=== PATIENT | male | born 1975 | race African-American/Black ===

== ENCOUNTER → 2016-07-08 | Outpatient (CLI) | payer MEDICARE ==
[~2016-07-08] MED LIST: BACTRIM DS TAB1 EACH PO; BACTRIM DS TABL1 TA1 PO; BC POWDER PACK1 EACH PO; BUMEX2 MG PO; CALCITRATE + V1 EACH PO; CLEOCIN150 MG PO; COREG3.125 MG PO; CYCLOBENZAPRINE5 MG PO; DAPTOMYCIN IV; DESYREL150 M1 PO; FENOFIBRATE145 M1 PO; HUMALOG100 U/ML SUBQ; HYDRALAZINE HCL50 MG PO; IRON325 ( 651 PO; LANTUS100 UNITS/ SUBQ; LEVEMIR FL100 UNIT/1 SUBQ; LISINOPRIL10 MG PO; LOSARTAN-HCTZ1 EAC1 PO; LOSARTAN-HCTZ1 EACH PO; METOPROLOL TAR100 MG PO; NEURONTIN600 MG PO; NORCO1 TAB 10/3 PO; NORVASC PO; NORVASC10 MG PO; NOVOLOG100 UNIT/1 SUBQ; OMEPRAZOLE20 M2 PO; PERCOCET 5/321 UDTAB PO; SODIUM BICARBO650 MG PO; TASPRIN325 MG PO; VICODIN PO; ZYLOPRIM100 MG PO
--- NOTE | ~2016-07-08 | MR61 ---
[facility] A Service of [facility] & [facility] / [facility] RADIOLOGY TEXT RESULTS PATIENT: KEN IBARRA LOCATION: CMRI : 77 UNIT #: [id number] AGE: [address]: Rehana Coker MD SEX: M ORDER DR: [id number] [address] [place], [place] [address] [id number] MR#: [id number] Acc #: [id number] NAME: KEN IBARRA : 1975 SEX: M STUDY DATE/TIME: 07/08/2016 20:28 UNIT: [facility] ROOM: STUDY DESCRIPTION: MR Foot Wo Contrast Rt Attending Physician: Sasha Coker M.D. Referring Physician: Sasha Coker M.D. Ordering Physician: Sasha Coker M.D. Primary Care Physician: Carissa Brown M.D. MRI CENTER REPORT This report is preliminary unless electronic signature is present. EXAM MRI right ankle and foot without contrast 07/08/2016. HISTORY Order states osteomyelitis of right fifth metatarsal. History sheet states right lateral distal foot pain with open wound for 3 months. Increasing pain for 3 weeks. No known injury. Right foot amputation 1.5 to 2 years ago. Diabetic. COMPARISON MRI right foot without and with IV contrast 08/30/2013, right foot radiographs 07/07/2016. The patient reported had a GFR 34 on 04/26/2015. No IV contrast was administered. Patient is status post transmetatarsal amputation since the previous MRI of 08/30/2013. There is apparent skin thickening surrounding a wound of the lateral midfoot adjacent to the fifth metatarsal base. The wound appears to measured 2.3 cm AP x 2.9 cm craniocaudal. Deep to the wound, there is loss of cortical definition of the lateral fifth metatarsal base with underlying marrow edema and subtle peripheral T1 marrow replacement compatible with early osteomyelitis. There is no evidence of a fluid collection/abscess. There is no additional evidence of osteomyelitis. There is generalized subcutaneous inflammation/edema. Correlate for clinical cellulitis. [facility] A Service of [facility] & [facility] / [facility] RADIOLOGY TEXT RESULTS PATIENT: KEN IBARRA [id number] : [birth year] UNIT #: [id number] AGE: [address]: Rehana Coker MD SEX: M ORDER DR: Ankle and hind foot are unremarkable and the is subcutaneous edema. There is generalized muscle atrophy. IMPRESSION 1. Lateral midfoot wound adjacent to fifth metatarsal base and stump of the transmetatarsal amputation. There is underlying change of early osteomyelitis of the fifth metatarsal base. 2. Muscle atrophy and subcutaneous edema. 3. Transmetatarsal amputation. 4. No abscess or evidence of septic arthritis. Dictated by... Sara Hernandez M.D. THIS IS AN ELECTRONICALLY VERIFIED REPORT Sara Hernandez M.D. at 07/10/2016 8:11 AM HAYDEN/monica TD: 07/09/2016 12:04 JOB #: [id number] MRI CENTER REPORT Page 1 of 1 COPY
== END | disposition home or self-care (01) ==
LOC: CMRI 19:42
DX: M86.8X7 Other osteomyelitis, ankle and foot (principal); T87.89 Other complications of amputation stump; M62.571 Muscle wasting and atrophy, not elsewhere classified, right ankle and foot; Z89.431 Acquired absence of right foot
CPT/HCPCS: 73718

== ENCOUNTER 2016-07-16 10:01 | Inpatient (IN) | payer MEDICARE, OTHER ==
--- NOTE | ~2016-07-16 | EKG ---
PATIENT: KEN IBARRA UNIT #: [id number] Ventricular Rate: 74 BPM Atrial Rate: 74 BPM P-R Interval: 172 ms QRS Duration: 86 ms Q-T Interval: 416 ms QTC Calculation(Bezet): 461 ms P [place]: 59 degrees Calculated R [place]: 76 degrees Calculated T [place]: 91 degrees Diagnosis Line: Normal sinus rhythm Diagnosis Line: Nonspecific T wave abnormality Diagnosis Line: Prolonged QT Diagnosis Line: Abnormal ECG Diagnosis Line: When compared with ECG of 17-JUL-2016 09:34, Diagnosis Line: No significant change was found Diagnosis Line: Confirmed by VANESSA SCHWAB MD ([id number]) on Diagnosis Line: 07/21/2016 9:36:23 PM INTERPRETING MD: ZAHEER CALVILLO
--- NOTE | ~2016-07-16 | CO ---
Unit #: [id number] #: [id number] Patient: KEN IBARRA [id number] [address] [address] [id number] I MR#: [id number] NAME: KEN IBARRA. ROOM: [facility] Age: 40 Sex: M Admission Date: 07/16/2016 : 1975 Attending Physician: Srinath Mantilla M.D. Primary Care Physician: Carissa Brown M.D. Consultation Date: 07/16/2016 CONSULTATION REPORT REASON FOR CONSULTATION Preoperative evaluation. HISTORY OF PRESENT ILLNESS The patient is a 40-year-old male with a past medical history of diabetes with peripheral neuropathy, hypertension, hyperlipidemia, diastolic dysfunction, chronic kidney disease who is being seen in the pre-surgical area for the above. The patient states that he has had a wound on his right foot for about three months. He states that it has not been healing. It started draining malodorous fluid about a month ago. He started seeing Dr. Coker. He has been on Bactrim for over a week. He has apparently not had any improvement. He is scheduled for debridement and right fifth metatarsal excision as well as application of wound vac today. Regarding the patient's chronic medical conditions, he has chronic kidney disease and sees Dr. Monique. Regarding diabetes, he states that he has been taking his medications as prescribed and his blood sugars are typically in the 100s. He does have diastolic dysfunction. He states that he was hospitalized at [facility] in January of 2016 for chest pain. He underwent a stress test. There are no records. PAST MEDICAL HISTORY 1. Admission to [facility] for chest pain in January 2016 (no records). 2. Admission to [facility] May 01, 2015, for left second toe deformity and infection. 3. Diabetes with peripheral neuropathy. 4. Hypertension. 5. Hyperlipidemia. 6. Diastolic dysfunction. The patient had an echocardiogram September 02, 2013, that showed moderate concentric left ventricular hypertrophy with an ejection fraction of 50% to 55%. The Doppler flow pattern was suggestive of impaired left ventricular relaxation. PAST SURGICAL HISTORY 1. Right foot surgery. 2. Osteotomies. 3. Resection of metatarsal head in the past. SOCIAL HISTORY The patient lives with his . He smokes a few Black and Milds daily. He denies alcohol or illicit drug use. He is currently unemployed. Unit #: [id number] #: [id number] Patient: EKN IBARRA FAMILY HISTORY Notable for diabetes. ALLERGIES Cefazolin. HOME MEDICATIONS 1. Metoprolol 150 mg twice daily. 2. Omeprazole 20 mg daily. 3. Norvasc 10 mg daily. 4. Zyloprim 100 mg daily. 5. Bumex 2 mg twice daily. 6. Fenofibrate 145 mg daily. 7. Aspirin 325 mg daily. 8. Cyclobenzaprine 5 mg t.i.d. 9. Hydralazine 5 mg t.i.d. 10. Levemir 10 units twice daily. 11. NovoLog 45 units t.i.d. before meals. 12. Losartan/hydrochlorothiazide 100/25 twice daily. 13. Sodium bicarb 650 mg twice daily. 14. Bactrim DS twice daily. 15. Caltrate plus D Thursday, Thursday, Thursday. REVIEW OF SYSTEMS A complete review of systems is negative except as indicated in the HPI. DIAGNOSTIC STUDIES CARDIOVASCULAR: There is an EKG from July 14 that showed normal sinus rhythm. T wave inversion is noted in V6. There is no old EKG for comparison. IMAGING: MRI of the right foot from July 09 showed lateral mid foot wound adjacent to the fifth metatarsal base and stump of the amputation with underlying change of early osteomyelitis of the fifth metatarsal base. There is no abscess or evidence of septic arthritis. LABORATORY: Complete blood count from today notable for white blood cell count of 13.9, hemoglobin and hematocrit 8.8 and 27.2 respectively, platelets are 588. Basic metabolic panel notable for sodium of 129, chloride is 93, glucose 72, BUN and creatinine 78 and 7.5 respectively, calcium is 8.1. PHYSICAL EXAMINATION VITAL SIGNS: Temperature is 97.4, pulse 87, blood pressure 124/85, respirations 18, oxygen saturation 96% on room air. GENERAL: The patient is an -[place] male who is awake and alert, in no acute distress. HEENT: The head is atraumatic. Mucous membranes are moist. NECK: Supple. Trachea is midline. CARDIOVASCULAR: Regular rate and rhythm. LUNGS: Clear to auscultation bilaterally with no increased work of breathing. ABDOMEN: Soft, nontender with bowel sounds present in all four quadrants. EXTREMITIES: The right foot is in a bandage that is clean, dry and intact. There is 1+ edema of the right lower extremity. There is no edema of the left lower extremity. Unit #: [id number] #: [id number] Patient: KEN IBARRA NEURO: The patient is awake and alert. He follows commands. PSYCH: Mood and affect are normal. The patient is cooperative. SKIN: Skin of examined areas is warm and dry. ASSESSMENT The patient is a 40-year-old male with: 1. Right foot wound. 2. Osteomyelitis of the right fifth metatarsal: The patient is scheduled for surgery with wound vac today. 3. Acute on chronic kidney disease: I spoke with Dr. Shaun Monique regarding this patient. His creatinine was3.1 when he was seen earlier this year. Creatinine is 7.5 today. The patient has been on Bactrim which could be contributing. Additionally, he is on Bumex as well as losartan/hydrochlorothiazide which could also be contributing. He would benefit from hydration prior to surgery. 4. Acute on chronic anemia: The patient's hemoglobin was 11.7 on April 26, 2015. It is 8.4 today. 5. Diastolic dysfunction with ejection fraction as noted above. 6. Abnormal electrocardiogram: The patient had a stress test in January of 2016 at [facility]. There are no records at the time of this dictation. 7. Diabetes: The patient's hemoglobin A1c was 7.1 on July 14. 8. Tobacco abuse. PLAN 1. Regarding the surgery scheduled for this afternoon, I am attempting to reach Dr. Mantilla regarding possibly postponing the surgery unless it is emergent. The patient needs cardiac clearance from cardiology. I have requested records from [facility]. I have also discussed this patient with Dr. Monique and we think that he would benefit from hydration prior to surgical procedure. 2. Regarding acute on chronic kidney disease, I have ordered normal saline at 125 mL/hour as well as urine sodium, creatinine and eosinophils. I have also ordered a urinalysis and strict I's and O's. Will DC nephrotoxic medications. 3. Regarding diabetes, I have ordered low dose sliding scale insulin with Accu-Cheks. Thank you very much for the consultation. We will follow the patient along closely with you. Dictated by... Rob Bustamante/zorna TD: 07/16/2016 12:59 JOB #: [id number] Unit #: [id number] #: [id number] Patient: KEN IBARRA CONSULTATION REPORT Page 1 of 1 X Tonia Jensen MD CONSULTATION REPORT
--- NOTE | ~2016-07-16 | OR ---
Unit #: [id number] #: [id number] Patient: KEN IBARRA [id number] [address] [place], [place] [address] [id number] I MR#: [id number] NAME: KEN IBARRA. ROOM: [facility] Date of Procedure: 07/18/2016 Admission Date: 07/16/2016 Surgeon: Srinath Mantilla M.D. : 1975 Attending Physician: Srinath Mantilla M.D. Primary Care Physician: Carissa Brown M.D. OPERATIVE REPORT PREOPERATIVE DIAGNOSES 1. Status post prior right foot transmetatarsal amputation. 2. Right foot decubitus ulcer at the base of the fifth metatarsal with underlying osteomyelitis. POSTOPERATIVE DIAGNOSES 1. Osteomyelitis of the residual fifth metatarsal. 2. Osteomyelitis of right cuboid. 3. Septic arthritis of right calcaneocuboid joint. PROCEDURES PERFORMED 1. Excision of the fifth metatarsal. 2. Bone biopsy of the cuboid for culture and pathology. 3. Arthrotomy of calcaneocuboid joint. 4. Application of wound VAC area of approximately 5 cm in diameter. ANESTHESIA General. ESTIMATED BLOOD LOSS Minimal. COMPLICATIONS None apparent. INDICATIONS FOR PROCEDURE Linda is a 40-year-old gentleman, who is well known to me for multiple prior amputations including a right transmetatarsal amputation. He has most recently seen Dr. Coker and he was found to have an ulcerated area over the base of the fifth metatarsal. There was a foul smell and underlying findings consistent with osteomyelitis. Operative intervention was recommended with excision of the remaining fifth metatarsal and application of wound VAC. The patient elected to proceed. DESCRIPTION OF PROCEDURE The patient was identified in preoperative holding area. The operative site was marked. The patient was brought to the operating room and placed supine on the operating table. A general anesthetic was induced. A tourniquet was applied to the right thigh. The right leg was prepped and draped in sterile fashion. The leg was exsanguinated with gravity exsanguination. The tourniquet was inflated. The area of ulceration was excised in elliptical fashion. The underlying fifth metatarsal was Unit #: [id number] #: [id number] Patient: KEN IBARRA immediately identified. All nonviable necrotic tissue was excised by sharp excisional debridement with a 15-blade knife. The fifth metatarsal was necrotic and appeared visibly contaminated with osteomyelitis. The bone was dusky in appearance and soft. This was excised. The cuboid was visualized and was noted to be soft and pathologic appearing as well. A rongeur was used to take several samples of the cuboid. The cuboid was extremely soft and again consistent with likely osteomyelitis. Dissection was carried back to the calcaneocuboid joint, and a small amount of cloudy fluid have been observed from the proximal extent of the wound. A formal arthrotomy was made at the calcaneocuboid joint. There was cloudy fluid expressed from the calcaneocuboid joint consistent with likely septic arthritis of this joint. The wound was then copiously irrigated with sterile saline with bacitracin. Any remaining nonviable tissue was again debrided and the wound irrigated. The proximal extension of the wound after the calcaneocuboid joint was closed with 3-0 nylon in a horizontal mattress fashion. The area of elliptical incision of the prior ulcer was treated with a wound VAC. A small amount of Adaptic was placed in the depth of the wound to cover the exposed cuboid and fourth metatarsal. A silver impregnated sponge was then placed into the wound. A small strip of wound VAC sponge material was placed over the incision both proximal and distal to the ellipse, and a good seal was achieved with an Ioban dressing. The wound VAC was placed 125 mm of continuous suction. DISPOSITION Stable to the recovery room. Dictated by... Rob Burt/jean marie TD: 07/18/2016 10:44 JOB #: [id number] OPERATIVE REPORT Page 1 of 1 X Srinath Mantilla MD PROCEDURE OPERATIVE NOTE
--- NOTE | ~2016-07-16 | EKG ---
PATIENT: KEN IBARRA UNIT #: [id number] Ventricular Rate: 82 BPM Atrial Rate: 82 BPM P-R Interval: 172 ms QRS Duration: 86 ms Q-T Interval: 390 ms QTC Calculation(Bezet): 455 ms P [place]: 67 degrees Calculated R [place]: 82 degrees Calculated T [place]: 100 degrees Diagnosis Line: Normal sinus rhythm Diagnosis Line: T wave abnormality, consider lateral ischemia Diagnosis Line: Abnormal ECG Diagnosis Line: When compared with ECG of 16-JUL-2016 13:50, Diagnosis Line: (unconfirmed) Diagnosis Line: No significant change was found Diagnosis Line: Confirmed by FERMÍN BELL MD ([id number]) on 07/17/2016 Diagnosis Line: 6:09:12 PM INTERPRETING MD: RAY CALVILLO
--- NOTE | ~2016-07-16 | CO ---
Unit #: [id number] #: [id number] Patient: KEN GROVE [id number] [facility] [address]. [place], [place] [address] [id number] I MR#: [id number] NAME: KEN GROVE. ROOM: 473 Age: 40 Sex: M Admission Date: 07/16/2016 : 1975 Attending Physician: Srinath Mantilla M.D. Primary Care Physician: Carissa Brown M.D. 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 Sebastian Torres. CHIEF COMPLAINT We were asked to see for cardiac clearance with the patient with abnormal EKG. HISTORY OF PRESENT ILLNESS Mr. Grove is a 40-year-old male, who was admitted to [facility] for right fifth metatarsal base excision, debridement, and wound VAC application for worsening necrotic ulceration over the lateral fifth metatarsal base. He has a history of a previous right foot transmetatarsal amputation. He has poorly controlled diabetes and diabetic neuropathy. He was recently at [facility] in 01/2016, where he was seen by Cardiology for an elevated troponin. At that time, his troponin was 0.35 and donnie to 0.61. It was in the setting of acute on chronic kidney disease. In review of the [facility] records, states the patient had a stress test performed on 2014 that showed no evidence of ischemia and an echo as well that showed a mildly increased left ventricular outflow tract gradient, but normal left ventricular function and no significant valvular abnormality. He underwent a Lexiscan stress test on 02/03/2016, which showed probably normal Lexiscan stress Cardiolite test. There was no definitive evidence of myocardial ischemia or infarction. There was a small fixed defect with intact wall motion suggesting apical thinning and soft-tissue attenuations. Gated studies were poor quality, but overall there was normal left ventricular systolic function at 53%. A 12-lead EKG on 02/02/2016 showed a normal sinus rhythm with nonspecific ST-T wave abnormalities. PAST MEDICAL HISTORY 1. Insulin-dependent diabetes mellitus, last known A1c was 9.3 complicated by diabetic retinopathy and neuropathy. 2. Diabetic polyneuropathy with bilateral footdrop. 3. History of hypertension. 4. Chronic kidney disease stage 3. PAST SURGICAL HISTORY 1. On 05/01/2015, left second toe partial amputation through proximal interphalangeal joint for left second claw toe and left toe distal phalangeal osteomyelitis. 2. History of a right foot transmetatarsal amputation, left foot transmetatarsal head and hallux excision as well as amputation of the Unit #: [id number] #: [id number] Patient: KEN GROVE L distal phalanges of the left second through fourth toes. SOCIAL HISTORY Tobacco abuse. The patient is disabled. HOME MEDICATIONS Metoprolol 150 mg b.i.d., omeprazole 20 mg daily, Norvasc 10 mg daily, Zyloprim 100 mg daily, Bumex 2 mg b.i.d., fenofibrate 145 mg daily, aspirin 325 mg daily, cyclobenzaprine 5 mg t.i.d., hydralazine 50 mg t.i.d., Levemir 10 units subcu b.i.d., NovoLog 4 to 5 units subcu t.i.d. before meals, losartan/hydrochlorothiazide 100/25 b.i.d., sodium bicarb 650 mg b.i.d., Bactrim DS one tablet b.i.d., calcium citrate with vitamin D Thursday, Thursday, and Thursday. ALLERGIES Cefazolin caused a rash with itching that was severe. REVIEW OF SYSTEMS No fevers, no chills. Positive for nausea and increasing blood sugars. He has had some fevers with the infection in his foot. No dyspnea on exertion. No orthopnea. No nighttime snoring. No daytime somnolence. He does get some sharp shooting pains across his chest at times. No Crohn's. No colitis. He does sometimes walk with a walker. He has neuropathy as well as amputations on both feet. PHYSICAL EXAMINATION GENERAL: Chronically debilitated male, in no acute distress. VITAL SIGNS: Currently, no vital signs are available. The patient has 12-lead EKG, which shows a normal sinus rhythm. Ventricular rate 96, respirations are 16 in the room. He is 5 feet 7-1/2 inches, weight 72.7 kg, BMI 24. HEENT: Normocephalic and atraumatic. No xanthelasma. Pupils equal, round, reactive to light. Extraocular movements intact. No jugular venous distention. No elevated CVP. LUNGS: Clear to auscultation anteriorly, posteriorly bilaterally. HEART: S1, S2. No S3, S4. No murmurs, rubs, or gallops. No lift. ABDOMEN: Soft, nontender, nondistended. EXTREMITIES: No edema of the lower extremities. Right foot has a dressing on it. DIAGNOSTIC STUDIES LABORATORY RESULTS: Hemoglobin 8.8, hematocrit 27.2, white blood cell count 13.9, platelet count 588. The patient had preop labs done on 07/14/2016. White blood cell count was 5.3, hemoglobin 8.4, hematocrit 25.9, with a platelet count of 527. He had a PT of 12 and an INR of 1.1. His chemistry also on 07/14/2016 showed a sodium of 128, potassium of 4.9, chloride 93, CO2 26, BUN 63, creatinine 6.2, glucose was 125. AST 31, ALT 17. C-reactive protein was 15.7, and his hemoglobin A1c was 7.1. Repeat chemistry here at [facility] [place] shows a sodium of 129, potassium of 5.0, chloride 93, CO2 23, BUN 78, creatinine 7.5, glucose 72. CARDIOVASCULAR STUDIES: A 12-lead EKG shows a normal sinus rhythm, ventricular rate 77, atrial rate 77, possible left atrial enlargement, T-wave abnormality, consider lateral ischemia. Prolonged QT. ASSESSMENT AND PLAN 1. Osteomyelitis. The patient is scheduled to have surgery today. Unit #: [id number] #: [id number] Patient: KEN GROVE 2. History of hypertension. 3. Insulin-dependent diabetes. 4. Neuropathy. 5. Continued tobacco abuse. 6. The patient has had 2 negative stress test, one in 2014 and repeat in 01/2016. He is without any maday chest discomfort. A 12-lead EKG shows nonspecific T-wave abnormality. No ST elevation. No ST depression. He has T-wave inversion in I, aVL, and V6. We will check a 2D echocardiogram. The patient was discussed with Dr. Torres via phone and has been cleared for surgery. We will check a 2D echocardiogram. Dictated by... Sariah Maldonado A.P.R.N. [facility]/jean marie TD: 07/17/2016 02:55 JOB #: [id number] CONSULTATION REPORT Page 1 of 1 X X CONSULTATION REPORT
--- NOTE | ~2016-07-16 | EKG ---
PATIENT: KEN IBARRA UNIT #: [id number] Ventricular Rate: 96 BPM Atrial Rate: 96 BPM P-R Interval: 170 ms QRS Duration: 88 ms Q-T Interval: 372 ms QTC Calculation(Bezet): 469 ms P [place]: 55 degrees Calculated R [place]: 57 degrees Calculated T [place]: 121 degrees Diagnosis Line: Normal sinus rhythm Diagnosis Line: T wave abnormality, consider lateral ischemia Diagnosis Line: Prolonged QT Diagnosis Line: Abnormal ECG Diagnosis Line: When compared with ECG of 14-JUL-2016 14:05, Diagnosis Line: No significant change was found Diagnosis Line: Confirmed by FERMÍN BELL MD ([id number]) on 07/17/2016 Diagnosis Line: 6:01:31 PM INTERPRETING MD: RAY CALVILLO
--- NOTE | ~2016-07-16 | HP ---
Unit #: [id number] #: [id number] Patient: KEN IBARRA [id number] [address] [address] [id number] MR#: [id number] NAME: KEN IBARRA. ROOM: Age: Sex: M Admission Date: 07/16/2016 : 1975 Attending Physician: Srinath Mantilla M.D. Primary Care Physician: Carissa Brown M.D. HISTORY AND PHYSICAL CHIEF COMPLAINT Right foot lateral wound. HISTORY OF PRESENT ILLNESS The patient is a 40-year-old male with poorly controlled diabetes and diabetic neuropathy who has undergone previous right foot transmetatarsal amputation, who now presents with a worsening necrotic ulceration over the lateral fifth metatarsal base. MRI documents osteomyelitis of the residual fifth metatarsal base with nail replacement. He is admitted for right fifth metatarsal base excision and wound vac application. PAST MEDICAL HISTORY Remarkable for: 1. Insulin dependent diabetes. 2. Diabetic neuropathy. 3. Bilateral foot drop. 4. Hypertension. 5. Tobacco abuse. HOME MEDICATIONS 1. Gabapentin. 2. Hydrocodone. 3. Amlodipine. 4. Aspirin. 5. Hydralazine. 6. Insulin. 7. Metoprolol. ALLERGIES Cephalosporins. PAST SURGICAL HISTORY Right foot transmetatarsal amputation, left foot transmetatarsal head and hallux excision as well as amputation of the distal phalanges of the left second through fourth toes. SOCIAL HISTORY The patient is a smoker. He currently is not working. REVIEW OF SYSTEMS Unremarkable for fevers or chills although he does report nausea and increase in his blood sugar recently. PHYSICAL EXAMINATION Unit #: [id number] #: [id number] Patient: KEN IBARRA GENERAL: This is a thin, cachectic male in no acute distress. PHARYNX: Clear. NECK: Supple without masses. HEART: Regular sinus rhythm without murmurs or gallops. LUNGS: Clear. ABDOMEN: Soft and nontender. Examination of the right foot demonstrates a 3 cm diameter necrotic ulceration over the fifth metatarsal base. He has numbness in the stocking distribution. There is no ascending lymphangitis, fluctuance or drainage at this time. ADMITTING DIAGNOSES Right fifth metatarsal base osteomyelitis. PLAN The patient is admitted for right fifth metatarsal base excision, wound debridement and application of a wound vac. His peroneus longus is intact and will remain intact after this excision. I think the risk of hindfoot inversion following the procedure is low. Risks of the procedure were discussed. The patient agrees to proceed with the surgical plan. He is aware that the ultimate risk is below the knee amputation. Planned surgeon for this procedure is Dr. Srinath Mantilla. Dictated by Sasha Coker M.D. JUDE/zoran TD: 07/16/2016 09:41 JOB #: [id number] HISTORY AND PHYSICAL Page 1 of 1 X Rehana Coker MD X HISTORY AND PHYSICAL
--- NOTE | ~2016-07-16 | CO ---
Unit #: [id number] #: [id number] Patient: KEN IBARRA [id number] [address] [place], [place] [address] [id number] MR#: [id number] NAME: KEN IBARRA ROOM: 473 Age: 40 Sex: M Admission Date: 07/16/2016 : 1975 Attending Physician: Srinath Mantilla M.D. Primary Care Physician: Carissa Brown M.D. Consultation Date: 07/23/2016 CONSULTATION REPORT REASON FOR CONSULTATION Urinary retention. HISTORY OF PRESENT ILLNESS This 40-year-old man developed moderate difficulty urinating today and decreased urine output. In context of his renal insufficiency and other factors, a Valdes catheter was requested and residual was 750 mL. The patient with very detailed questioning essentially denies pre-hospital voiding symptoms. He typically sleeps through the night. Has no hesitancy, frequency, urgency, or previous trouble emptying. He has not been able to sit or stand to void, but has been rolling over in bed, but has also been doing so for 5 days since his surgery. He does have diabetes. He is receiving narcotics for pain control acutely and also chronically for his back pain. He has no prior history of urinary infection, gross hematuria, or stone disease. There is no family history of prostatism or prostate cancer and he has no history of prostatitis. PAST MEDICAL HISTORY Diabetes, hypertension, back pain, chronic renal insufficiency, hyperlipidemia, diastolic dysfunction, peripheral neuropathy. PAST SURGICAL HISTORY Osteotomies, right transmetatarsal amputation, bilateral toe amputations. MEDICATIONS Currently include Levaquin, Zyvox, Flagyl, sodium bicarbonate, Lovenox, Zofran, [place], morphine, [place], Lopressor, Protonix, NovoLog, hydralazine, Rocaltrol, Zyloprim, amlodipine, Protonix. ALLERGIES Cephalosporins. FAMILY HISTORY Negative for prostate cancer. SOCIAL HISTORY Positive for smoking. REVIEW OF SYSTEMS In addition to the above, he has had trouble swallowing this hospitalization evaluated by Gastroenterology and Speech. Unit #: [id number] #: [id number] Patient: KEN IBARRA PHYSICAL EXAMINATION GENERAL: On examination, the patient is pleasant, alert 40-year-old, man, sitting in bed with a wound VAC on his right foot. HEENT: Unremarkable. ABDOMEN: Soft and nontender. No masses, hernia scars, or organomegaly. : Phallus normal circumcised with Valdes catheter in place, draining clear yellow urine. Catheter well secured to the leg. Testes and epididymis normal descended. Digital exam; normal anus and sphincter tone. Empty vault. Prostate feels barely above normal perhaps 30 g. Soft, nontender. No nodularity or fluctuance. DIAGNOSTIC STUDIES LABORATORY RESULTS: Urinalysis normal yesterday. BUN 21, creatinine 5.4 increased from slightly lower baseline. WBC 41.7, hemoglobin 7.7. IMPRESSION Multifactorial urinary retention associated with recumbency, diabetes, narcotics, possible small component of benign prostatic hypertrophy and now overdistention. PLAN 1. We will culture the urine. Start him on tamsulosin 0.4 mg daily and plan a voiding trial and perhaps 2 days especially if able to at least angle seat on the edge of the bed to void and ideally when able to stand. 2. In regard to his chronic renal insufficiency, note that a renal ultrasound from 07/16/2016 showed no hydronephrosis, although there was some bladder distention seen at that time also. Thank you, Dr. He for the consultation. Dictated by... Juan Segura M.D. THOMPSON/jean marie TD: 07/25/2016 03:11 JOB #: [id number] CC: Neri Aquino M.D. CONSULTATION REPORT Page 1 of 1 X Juan Segura MD X CONSULTATION REPORT
--- NOTE | ~2016-07-16 | CO ---
Unit #: [id number] #: [id number] Patient: KEN GROVE [id number] [address] [place], [place] [address] [id number] I MR#: [id number] NAME: KEN GROVE ROOM: [facility] Age: 40 Sex: M Admission Date: 07/16/2016 : 1975 Attending Physician: Srinath Mantilla M.D. Primary Care Physician: Carissa Brown M.D. CONSULTATION REPORT HISTORY OF PRESENT ILLNESS Mr. Grove is a 40-year-old Afro [place] male, who was admitted to the hospital on 07/16/2016 for osteomyelitis of right foot, and underwent excision of right fifth metatarsal, bone biopsy of cuboid bone for culture, arthrotomy of calcaneocuboid joint. Apparently, he has had some chest discomfort and dysphagia. Swallow study was negative. Upper GI revealed some antral gastritis. No stricture. A CT scan of the abdomen was done, which showed some perinephric stranding. It also showed a left lower lobe infiltrate. CT scan of the chest was subsequently performed and revealed dense left lower lobe consolidation and small pleural effusion. His procalcitonin level was 2.28. Lactic acid level is pending. His blood pressure is stable. He is afebrile. He is currently maintained on Zyvox, meropenem, Flagyl, and Levaquin per Infectious Disease who is following. We have been asked to see for severe sepsis. His white blood cell count is elevated at 31,300, hematocrit is 21.6, platelet count was 513,000. He does have a history of tobacco use. He is currently not smoking. PAST MEDICAL HISTORY History of chronic kidney disease stage 4 to 5, insulin-dependent diabetes mellitus, diabetic neuropathy, hypertension. PAST SURGICAL HISTORY He has had amputation of the left second toe, history of right foot metatarsal amputation, left foot metatarsal head and hallux excision, has some history of diastolic dysfunction, hyperlipidemia, hypertension, I think normal stress test. SOCIAL HISTORY Lives with . Does smoke a few black and mild cigarettes and cigars. No alcohol or illicit drugs. 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 FAMILY HISTORY Notable for diabetes. CURRENT MEDICATIONS Zyvox, Flomax, Lopressor, Protonix, Norvasc, Zyloprim, hydralazine, calcium with vitamin D, Rocaltrol, Levaquin, Lovenox, Dakin solution, sodium bicarb, NovoLog, Flagyl, meropenem, Lortab, morphine, Zofran. REVIEW OF SYSTEMS No cough or purulent sputum. He does have some chest discomfort, mid chest. Otherwise negative. Unit #: [id number] #: [id number] Patient: KEN GROVE PHYSICAL EXAMINATION GENERAL: Afro [place] male, in no distress. He is calm. VITAL SIGNS: Blood pressure is 110/70, pulse is 80, respiratory rate 16, afebrile, temperature 97.9, O2 saturation 93%. HEENT: Normocephalic, atraumatic. Pupils equal, round, reactive. Sclerae nonicteric. Nasal passages patent. Posterior pharynx clear, possibly some thrush. NECK: Supple. Trachea midline. No cervical or supraclavicular lymphadenopathy. LUNGS: Reveal rales in both bases. E to A changes in the left base. CARDIAC: Regular rate and rhythm. Could not appreciate murmur, rub, or gallop. ABDOMEN: Nontender. Bowel sounds present. No hepatosplenomegaly. EXTREMITIES: Without edema. Left foot wrapped. SKIN: Warm and dry. PSYCHIATRIC: Affect calm. DIAGNOSTIC STUDIES IMAGING STUDIES: Reviewed. Chest x-ray and CT scans personally reviewed. IMPRESSION 1. Acute hypoxemic respiratory failure. Note that when I return from having a PICC line placed, his O2 saturation was 77%. He was placed on oxygen. It is increased now on 2 L. He is in mid 90s saturation. 2. Healthcare-acquired pneumonia, left lower lobe. 3. Osteomyelitis of left foot. 4. Anemia. 5. History of gastritis. PLAN Pulmonary hygiene. Mobilization of secretions. Prevent aspiration. Antibiotics per ID. Further recommendations pending this. Dictated by... Quentin Sanchez M.D. ADRIAN/jean marie TD: 07/25/2016 04:25 JOB #: [id number] CONSULTATION REPORT Page 1 of 1 X Quentin Sanchez MD X CONSULTATION REPORT
--- NOTE | ~2016-07-16 | CT4 ---
[facility] A Service of [facility] RADIOLOGY TEXT RESULTS PATIENT: KEN IBARRA LOCATION: [facility] : [birth year] UNIT #: [id number] AGE: [address]: Srinath Mantilla MD SEX: M ORDER DR: [id number] [place] [id number] [facility]. [place], [place] [address] [id number] I MR#: [id number] Acc #: [id number] NAME: KEN IBARRA : 1975 SEX: M STUDY DATE/TIME: 07/22/2016 15:40 UNIT: [facility] ROOM: [facility] STUDY DESCRIPTION: CT Abd and Pelv Wo Cont Attending Physician: Srinath Mantilla M.D. Ordering Physician: Montserrat Kirkpatrick A.P.R.N. Primary Care Physician: Carissa Brown M.D. MEDICAL IMAGING REPORT This report is preliminary unless electronic signature is present EXAM CT abdomen and pelvis without contrast Date: 07/22/2016 HISTORY A 40-year-old male with hypoactive bowel sounds and abdominal pain for 4 days. Additional history of dysphagia, acid reflux, nausea, hypertension, diabetes, congestive heart failure, pneumonia. COMPARISON No prior CT abdomen for comparison at this institution. Correlation is made to bilateral renal ultrasound 07/16/2016. TECHNIQUE This CT exam was performed with one or more of the following radiation dose reduction techniques: automatic exposure control, adjustment of mA and/or kV according to patient size, and iterative reconstruction. PROCEDURE 5 mm noncontrast axial images through the abdomen and pelvis. Enteric contrast was not administered. Sagittal coronal reformed images were obtained. FINDINGS Dense consolidation is seen within the posterior left lower lobe suggesting changes of pneumonia in the appropriate clinical context. There is minimal linear atelectatic change within the right lower lobe. Small gallstones are present without pericholecystic inflammation or biliary ductal dilation. [facility] A Service [facility] RADIOLOGY TEXT RESULTS PATIENT: KEN IBARRA LOCATION: [facility] : [birth year] UNIT #: [id number] AGE: [address]: Srinath Mantilla MD SEX: M ORDER DR: There is trace left pleural effusion. The noncontrast appearance of the liver, spleen, pancreas and adrenal glands are within normal limits. There is some nonspecific bilateral perinephric stranding, left greater than right. Findings are nonspecific but could represent changes of nephritis in the proper clinical context. No urinary tract stone or hydronephrosis is seen. Limited evaluation of bowel due to lack of enteric contrast. No focal bowel inflammation is seen. There is no evidence of high-grade large or small bowel obstruction. There is moderate colonic stool burden greatest within the ascending, transverse and proximal descending segments. Pelvis: There is significant urinary bladder distension with fluid up to 17.3 cm cranial caudally to the level of the umbilicus. No obstructing urinary abnormalities seen. There is a tiny umbilical hernia containing only fat. The prostate and rectum appear unremarkable. No pelvic free fluid is seen. There is mild body wall edema. There is thoracolumbar junction levoscoliosis. No acute osseous abnormalities are identified. There are enlarged right inguinal lymph nodes, the dominant measuring 2.0 x 1.9 cm, nonspecific and may be reactive related to the right foot osteomyelitis, as suggested in the recent 07/08/2016 right foot MRI. IMPRESSION 1. There is nonspecific bilateral perinephric stranding, left greater than right. Correlate clinically for nephritis symptoms. Correlate with urinalysis findings. 2. Dense left lower lobe lung consolidation with trace left pleural effusion. Correlate for pneumonia. Correlate for aspiration. 3. Tiny gallstones without evidence of cholecystitis. 4. Enlarged right inguinal lymph nodes are nonspecific and may be reactive. 5. Significant urinary bladder distension to the level of the umbilicus without obstructing abnormality seen. Correlate with urine output findings. A Valdes catheterization may be necessary. 6. The appendix is not visualized. No pericecal inflammation is seen. 7. Moderate ascending, transverse and proximal descending colonic stool burden. No evidence of high-grade bowel obstruction or active bowel inflammation. Dictated by... Elise Mcmahon M.D. THIS IS AN ELECTRONICALLY VERIFIED REPORT [facility] A Service of [facility] RADIOLOGY TEXT RESULTS PATIENT: KEN IBARRA LOCATION: [facility] 473- : [birth year] UNIT #: [id number] AGE: [address]: Srinath Mantilla MD SEX: M ORDER DR: Elise Mcmahon M.D. at 07/23/2016 2:10 PM RAPHAEL/ray TD: 07/22/2016 22:20 JOB #: [id number] MEDICAL IMAGING REPORT Page 1 of 1 COPY
--- NOTE | ~2016-07-16 | CT57 ---
[facility] A Service of [facility] & [facility] RADIOLOGY TEXT RESULTS PATIENT: KEN IBARRA LOCATION: [facility] 473-01 : [birth year] UNIT #: [id number] AGE: [address]: Srinath Mantilla MD SEX: M ORDER DR: [id number] [facility] [address]. [place], [place] [address] [id number] I MR#: [id number] Acc #: [id number] NAME: KEN IBARRA : 1975 SEX: M STUDY DATE/TIME: 07/23/2016 16:11 UNIT: [facility] ROOM: [facility] STUDY DESCRIPTION: CT Chest Wo Cont Attending Physician: Srinath Mantilla M.D. Ordering Physician: Montserrat Kirkpatrick A.P.R.N. Primary Care Physician: Carissa Brown M.D. MEDICAL IMAGING REPORT This report is preliminary unless electronic signature is present EXAM CT chest without contrast DATE 07/23/2016 HISTORY 40-year-old male with pneumonia. Dysphagia. Hemoptysis. Physician's history states left lower lobe pneumonia, anemia, chronic kidney disease. Patient states difficulty swallowing for [address] abdomen and pelvis without contrast 07/22/2016. No recent chest x-ray or CT chest at this institution for comparison. PROCEDURE 5 mm noncontrast axial images through the chest. Sagittal and coronal reformatted images were obtained. This CT exam was performed with one or more of the following radiation dose reduction techniques: Automatic exposure control, adjustment of mA and/or kV according to patient size, and iterative reconstruction. FINDINGS Dense consolidative changes are demonstrated within the left lower lobe. Lesser degree of ground-glass alveolar disease changes are seen over the left upper lobe predominantly posteriorly, and ill-defined somewhat patchy alveolar and ground-glass opacities are demonstrated medially within the right lower lobe. Findings are favored to represent changes of multifocal pneumonia in the appropriate clinical context. There is relative sparing of the right middle lobe and right upper lobe. Suspected trace left pleural effusion. Mild cardiac enlargement. Mildly prominent mediastinal lymph nodes are seen, including right mid STS. [facility] A Service of [facility] & [facility] RADIOLOGY TEXT RESULTS PATIENT: KEN IBARRA LOCATION: [place] [address] : [birth year] UNIT #: [id number] AGE: [address]: Srinath Mantilla MD SEX: M ORDER DR: paratracheal node measuring 9 mm short axis, AP window node measuring 10 mm short axis, prevascular node measuring 8 mm short axis. These are nonspecific but are favored to represent benign reactive findings. Incidental note is made of a tiny low-density lesion within the right thyroid lobe measuring 4 mm, favored to represent a cyst or other benign etiology. Included upper abdominal organs are notable for small gallstone without pericholecystic inflammation or biliary dilation. Nonspecific bilateral perinephric stranding, left greater than right, persists. There is thoracic scoliotic curvature toward the right. Thoracolumbar junction curvature is slightly toward the left. IMPRESSION 1. Dense left lower lobe consolidation, with more patchy posterior left upper lobe ground-glass density and patchy alveolar and ground-glass disease in the posteromedial right lower lobe. Findings are favored to represent changes of multifocal pneumonia in the appropriate clinical context. 2. Mildly prominent mediastinal lymph nodes, favored to represent benign reactive changes. 3. Trace left pleural effusion. 4. Mild cardiomegaly. 5. Nonspecific bilateral perinephric stranding, left greater than right. Correlate with urinalysis findings and clinical symptoms, as nephritis cannot be excluded. 6. Uncomplicated cholelithiasis. 7. Thoracolumbar scoliosis. Dictated by... Elise Mcmahon M.D. THIS IS AN ELECTRONICALLY VERIFIED REPORT Elise Mcmahon M.D. at 07/24/2016 10:05 AM RAPHAEL/dylan TD: 07/24/2016 00:47 JOB #: [id number] MEDICAL IMAGING REPORT Page 1 of 1 COPY
--- NOTE | ~2016-07-16 | DS ---
Unit #: [id number] #: [id number] Patient: KEN IBARRA [id number] [address] [place], [place] [address] [id number] I MR#: [id number] NAME: KEN IBARRA ROOM: 473 Age: 40 Sex: M Admission Date: 07/16/2016 : 1975 Discharge Date: 07/29/2016 Attending Physician: Pam Abbasi M.D. Primary Care Physician: Carissa Brown M.D. DISCHARGE SUMMARY HISTORY/HOSPITAL COURSE Please note the patient was originally admitted under the service of Dr. Srinath Mantilla of orthopedic service. We were consulted initially for medical management, and subsequently care was transferred to our service approximately 3/[address] through hospital admission. Patient is a very pleasant 40-year-old male admitted under the initial premise of a chronic right foot wound, as well as osteomyelitis of the right fifth metatarsal. Originally plans were made in regard to wound V.A.C. placement, as well as routine wound care with subsequent discharge. Patient underwent ultimately intraoperative management of the aforementioned wound. Please see orthopedic note for complete details. In regard to the patient's antibiotic management, consultation has been placed to infectious disease service. Dr. Dumont and associates saw and evaluated the patient and have made appropriate antibiotic recommendations, as detailed below, at time of discharge. The patient did develop acute on chronic kidney disease. At one point his creatinine did elevate as high as 5.5. Initially consideration was made for possible hemodialysis and/or tunnelled catheter placement. However, his creatinine level did improve and subsequently nephrology service, under the service of Dr. Aquino, stated that the patient could be successfully followed as an outpatient for consideration at a later time. In consideration of the patient's respiratory status, as well as preoperative management, Dr. Sanchez was consulted for preoperative evaluation. He also followed the patient throughout. There was a question if the patient had a retrocardiac infiltrate, and he was appropriately treated with IV antibiotics, as detailed above, in consideration with and by the recommendation of ID service. His chest x-ray, as well as CT abdomen and pelvis, performed did reveal left lower lobe consolidation. The patient did develop difficulty with swallowing and/or decreased hemoglobin. At one point his hemoglobin did decrease into the 7 range; therefore, consultation was placed to Dr. Shaw and associates. The patient ultimately underwent upper GI endoscopy with appropriate dilatation of stricture. Postoperatively he, otherwise, did well. At this point in time patient requires wound V.A.C. secondary to right lower extremity wound, as well as recent perioperative management. He also Unit #: [id number] #: [id number] Patient: KEN IBARRA requires IV antibiotics as detailed below; therefore, in accordance with wound V.A.C. management, IV antibiotics, as well as significant deconditioning, recommendation has been made by both PT and OT services for the patient to be transitioned to a rehab facility. The patient will be transitioned there on appropriate IV antibiotics and continuing therapy. Overall, his prognosis is guarded secondary to his associated comorbid conditions, as well as his questionable compliance. It was reinforced with him that, if he does not comply with IV antibiotics and wound care, the likelihood he will undergo [id number] amputation on the right side is significantly elevated. Ultimately he may require this at a later point in time; however, he only increases his risk by noncompliance. He is well aware. The patient will be discharged to rehab facility later this afternoon once bed available. FINAL DISCHARGE DIAGNOSES 1. Right foot osteomyelitis status post debridement. Please see operative note for details. 2. Acute on chronic kidney disease, stage 4/5, followed by Dr. Aquino and associates. 3. Acute respiratory failure, resolved. 4. Left lower lobe consolidation, possible aspiration versus healthcare-acquired pneumonia. 5. Dysphagia status post esophagogastroduodenoscopy. 6. 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 7. Chronic urinary retention issues, followed by Dr. De La Rosa as an outpatient. 8. Diabetes. 9. Chronic debility. 10. Chronic deconditioning. 11. Osteomyelitis of right lower/right foot. 12. Anemia. Baseline hemoglobin 7.5. 13. Gastritis noted on upper gastrointestinal endoscopy. 14. Prior history of gastroesophageal reflux disease. DISCHARGE MEDICATIONS 1. Merrem IV 500 mg IV q.12 hours until August 30, 2016. 2. Levaquin 500 mg p.o. q.48 hours until August 30, 2016. 3. Zyvox 600 mg IV q.12 until 08/02/2016. 4. Albuterol nebulized solution q.8 hours. 5. Sodium bicarbonate 1,300 mg p.o. q.8. 6. Flomax 0.4 mg p.o. q.h.s. 7. Lovenox 30 mg subcu q.24 until patient is more ambulatory. 8. Cymbalta 30 mg p.o. q.h.s. 9. Zofran 4 mg p.o. q.6 p.r.n. nausea. 10. Norvasc 10 mg p.o. daily. 11. Lopressor 150 mg p.o. b.i.d. 12. MiraLAX 17 grams daily. 13. Linzess 145 mcg p.o. daily. 14. Hydralazine 50 mg p.o. t.i.d. 15. NovoLog low-dose sliding scale with insulin Accu-Cheks q.a.c./q.h.s. 16. Allopurinol 100 mg p.o. daily. 17. Aspirin 81 mg p.o. daily. 18. [place]aville 10/325 mg 1 tablet p.o. q.4 p.r.n. 19. Renvela 800 mg p.o. t.i.d. with meals. 20. Protonix 40 mg p.o. daily. Unit #: [id number] #: [id number] Patient: KEN IBARRA 21. Os-Alber 500 mg p.o. Thursday, Thursday, Thursday. 22. Sodium chloride 4 mL nebulized solution t.i.d.. 23. Flexeril 5 mg p.o. t.i.d. p.r.n. 24. Calcitriol 0.25 mg p.o. Thursday, Thursday, Thursday. DISCHARGE CONDITION Stable. DISCHARGE DISPOSITION Rehab. LONG-TERM PROGNOSIS Guarded. Dictated by... Rob Clark/hank TD: 07/29/2016 15:59 JOB #: [id number] DISCHARGE SUMMARY Page 1 of 1 X Pam Abbasi MD X DISCHARGE SUMMARY
--- NOTE | ~2016-07-16 | XA166 ---
[facility] A Service of [facility] RADIOLOGY TEXT RESULTS PATIENT: KEN IBARRA LOCATION: [facility] 473- : [birth year] UNIT #: [id number] AGE: [address]: Pam Abbasi MD SEX: M ORDER DR: [id number] [facility] [address] [facility]. [place], [place] [address] [id number] I MR#: [id number] Acc #: [id number] NAME: KEN IBARRA. : 1975 SEX: M STUDY DATE/TIME: 07/24/2016 8:41 UNIT: [facility] ROOM: [facility] STUDY DESCRIPTION: XA PICC Line Placement WO Port Attending Physician: Pam Abbasi M.D. Ordering Physician: Agnes Avendano M.D. Primary Care Physician: Carissa Brown M.D. MEDICAL IMAGING REPORT This report is preliminary unless electronic signature is present EXAM PICC line placement INDICATION Need for IV access in a patient with pneumonia. PROCEDURE The procedure was explained to the patient including risks, benefits, potential complications and potential for alternative forms of treatment. Informed consent was obtained. Prior to initiating the procedure, a formal time-out procedure was performed. Using all elements of maximal sterile barrier technique including hand hygiene, caps, sterile gowns, gloves and masks, the right arm was prepped with 2% Chlorhexidine for cutaneous antisepsis and covered with a large sterile sheet. Real-time sterile ultrasound guidance was used to localize a right upper extremity vein which was found to be patent and compressible. A hard copy ultrasound image was obtained. After local anesthesia with 1% Xylocaine, the vein was punctured using real-time sterile ultrasound guidance and an open 0.18 guidewire was advanced into the right subclavian vein under fluoroscopic guidance. However, I was unable to advanced the wire into the superior vena cava despite multiple efforts. At this point, a peel-away sheath was advanced over the wire. The catheter was measured and trimmed and was going to be positioned within the right subclavian vein but I could not advance it past the right axillary vein. A Savvy balloon catheter was advanced over the wire and used to angioplasty the apparent stenosis. The catheter was then advanced over the wire and positioned within the right subclavian vein. Following placement of the catheter, it flushed and aspirated easily. IMPRESSION Successful placement of a midline PICC within the right subclavian vein. Ultrasound and fluoroscopy were used during placement of the catheter and STS. [facility] A Service of [facility] RADIOLOGY TEXT RESULTS PATIENT: KEN IBARRA LOCATION: [facility] 473-01 : [birth year] UNIT #: [id number] AGE: [address]: Pam Abbasi MD SEX: M ORDER DR: permanent images were saved. Total fluoroscopy time was 0.9 minutes. AK was 2 mGy. Dictated by... Lucy Cisneros M.D. THIS IS AN ELECTRONICALLY VERIFIED REPORT Lucy Cisneros M.D. at 07/26/2016 12:41 PM NAZ/meka TD: 07/25/2016 13:28 JOB #: [id number] MEDICAL IMAGING REPORT Page 1 of 1 COPY
--- NOTE | ~2016-07-16 | CO ---
Unit #: [id number] #: [id number] Patient: KEN GROVE L [id number] [address] [place], [place] [address] [id number] I MR#: [id number] NAME: KEN GROVE ROOM: [facility] Age: 40 Sex: M Admission Date: 07/16/2016 : 1975 Attending Physician: Srinath Mantilla M.D. Primary Care Physician: Carissa Brown M.D. Consultation Date: 07/22/2016 CONSULTATION REPORT ADDENDUM OPERATING PHYSICIAN Abdiel Shaw M.D. PREOPERATIVE DIAGNOSIS Dysphagia and bolus meat impaction. PLAN Mr. Grove is a pleasant 40-year-old -[place] gentleman who is status post right foot transmetatarsal amputation due to osteomyelitis from diabetic neuropathy and arterial disease. Patient has had choking on a piece of meat and gets occasional dyspeptic symptoms. A diagnostic upper endoscopy and a possible dilation if indicated will be scheduled for tomorrow. Dictated by... Rob Bhatia/mary TD: 07/23/2016 21:57 JOB #: [id number] CONSULTATION REPORT Page 1 of 1 X Abdiel Shaw MD CONSULTATION REPORT
--- NOTE | ~2016-07-16 | CO ---
Unit #: [id number] #: [id number] Patient: KEN IBARRA [id number] [address] [address] [id number] I MR#: [id number] NAME: KEN IBARRA ROOM: [facility] Age: 40 Sex: M Admission Date: 07/16/2016 : 1975 Attending Physician: Srinath Mantilla M.D. Primary Care Physician: Carissa Brown M.D. Consultation Date: 07/22/2016 CONSULTATION REPORT REASON FOR CONSULT Dysphagia. HISTORY OF PRESENT ILLNESS The patient is a 40-year-old male with a past medical history of poorly controlled diabetes with diabetic neuropathy, hypertension, hyperlipidemia, diastolic dysfunction, chronic kidney disease, chronic anemia. The patient is status post right foot transmetatarsal amputation for diabetic ulcer and osteomyelitis. The patient is being evaluated for dysphagia. The patient reports choking on a piece of chicken during lunch today and had to regurgitate the food bolus. He states he noticed some difficulty with swallowing since admission stating it is hard for him to swallow at times. He also has been having intermittent nausea and vomiting along with some dyspeptic symptoms since surgery. He has occasional reflux but otherwise no odynophagia, no abdominal pain, no recent weight loss or overt gastrointestinal blood loss in the form of hematemesis, melena or hematochezia. PAST MEDICAL HISTORY 1. Diabetes with peripheral neuropathy. 2. Hypertension. 3. Hyperlipidemia. 4. Diastolic dysfunction. 5. Chronic kidney disease. 6. Chronic anemia. PAST SURGICAL HISTORY 1. Right foot surgery. 2. Resection of metatarsal head in the past. ALLERGIES Cefazolin. HOME MEDICATIONS 1. Metoprolol. 2. Omeprazole. 3. Norvasc. 4. Zyloprim. 5. Bumex. 6. Fenofibrate. 7. Aspirin. 8. Cyclobenzaprine. 9. Hydralazine. 10. Levemir. Unit #: [id number] #: [id number] Patient: KEN IBARRA 11. NovoLog. 12. Losartan/hydrochlorothiazide combination. 13. Sodium bicarb. 14. Bactrim. 15. Caltrate plus D. SOCIAL HISTORY The patient is , lives with his . He smokes Black and Mild on a daily basis. Denies alcohol and illicit drug use. FAMILY HISTORY None for colon or pancreatic cancer or liver disease. REVIEW OF SYSTEMS A complete review of systems is negative except as indicated in HPI. PHYSICAL EXAMINATION GENERAL: The patient is awake, alert and oriented, in no acute distress. VITAL SIGNS: Stable with temperature 99.3, blood pressure 137/79, heart rate 101, respirations 18. HEENT: No pallor, no scleral icterus, no lymphadenopathy. CARDIOVASCULAR: Regular rate and rhythm. LUNGS: Clear to auscultation bilaterally. ABDOMEN: Soft, nontender. Liver and spleen not palpable. Bowel sounds are normal. EXTREMITIES: Right foot dressing is clean and dry and intact. DIAGNOSTIC STUDIES LABORATORY: BMP shows BUN 51, creatinine 4.9, sodium 127. CBC notable for WBC 43.7, hemoglobin 7.6, platelets 569. IMAGING: CT of abdomen and pelvis has been ordered. Results are pending at this time. ASSESSMENT 1. Dysphagia. 2. Osteomyelitis, status post right foot transmetatarsal amputation. 3. Diabetes with peripheral neuropathy. 4. Acute kidney injury. Possible etiology for dysphagia in this patient include reflux esophagitis, esophageal stricture or Schatzki ring. A diagnostic upper GI endoscopy with possible dilation is warranted. Plan of care discussed in detail with patient. He is agreeable for EGD. Thank you very much for asking us to see this patient. We appreciate the consult. Dictated by.Candace. Heather Soni APRN for Rob Bhatia/zoran Unit #: [id number] #: [id number] Patient: KEN IBARRA TD: 07/23/2016 08:41 JOB #: [id number] CONSULTATION REPORT Page 1 of 1 X X CONSULTATION REPORT
--- NOTE | ~2016-07-16 | CO ---
Unit #: [id number] #: [id number] Patient: KEN BIARRA [id number] [address] [place], [place] [address] [id number] MR#: [id number] NAME: KEN IBARRA. ROOM: [facility] Age: 40 Sex: M Admission Date: 07/16/2016 : 1975 Attending Physician: Srinath Mantilla M.D. Primary Care Physician: Carissa Brown M.D. Consultation Date: 07/16/2016 CONSULTATION REPORT REASON FOR CONSULTATION Elevated creatinine level. HISTORY OF PRESENT ILLNESS The patient is a 40-year-old male with known history of hypertension, type 2 diabetes, hyperlipidemia, diastolic dysfunction, baseline creatinine around 3 with chronic kidney disease stage 3 to 4 clinically attributed to diabetic nephropathy. The patient admitted with left 5th metatarsal necrotic ulceration with documented osteomyelitis on the MRI and for likely excision of the metatarsal. The patient was started on Bactrim due to his underlying infection. His other medication included losartan and hydrochlorothiazide. The patient noted to have a creatinine level of 7.8, potassium of 5, sodium 129. The patient also noted to have a BUN of 78, he was treated with Bactrim. His other medication includes losartan and hydrochlorothiazide. No reported vomiting, diarrhea, fevers, chills, NSAID use, recent IV contrast. PAST MEDICAL HISTORY Significant for insulin-dependent diabetes, diabetic neuropathy, diabetic retinopathy, chronic kidney disease stage 3 to 4 clinically secondary to diabetic nephropathy, hypertension. HOME MEDICATIONS Include gabapentin, hydrocodone, amlodipine, aspirin, hydralazine, insulin, metoprolol, losartan and hydrochlorothiazide. ALLERGIES Cephalosporins. PAST SURGICAL HISTORY Significant for right foot transmetatarsal amputation, left foot transmetatarsal head and hallux excision. SOCIAL HISTORY The patient is a smoker. REVIEW OF SYSTEMS CVS: No chest pain. RESPIRATORY: No cough or expectoration. GI: No diarrhea. No vomiting. : No hematuria. No dysuria. PHYSICAL EXAMINATION GENERAL: The patient is awake, alert, and oriented. Unit #: [id number] #: [id number] Patient: KEN IBARRA VITAL SIGNS: Temperature is 97.4, heart rate is 87 per minute, blood pressure is 124/85, oxygen saturation is 96%. HEENT: Head is atraumatic. Extraocular movements are intact. Sclerae are anicteric. NECK: Supple. There is no elevation of the JVD. CHEST: Clear. Air entry is equal bilaterally. Breathing is vesicular in nature. HEART: S1, S2 audible. ABDOMEN: Soft and distended with positive fluid thrill. EXTREMITIES: There is no edema. MANAGER OF PMO: Motor system is intact. Cerebellar system is intact. DIAGNOSTIC STUDIES LABORATORY RESULTS: Significant with sodium 129, potassium 5, chloride 93, CO2 of 23, BUN 78, creatinine 7.5, glucose 72, calcium is 8.1. The WBC is 13.9, hemoglobin and hematocrit 8.8 and 27.2 with a platelet count of 588. Hemoglobin A1c 7.1. CRP is 15.7. IMAGING STUDIES: The MRI of the right foot in last week had left mid foot fifth metatarsal base and stump of transmetatarsal amputation with early osteomyelitis, muscle atrophy, status post right foot TMA. IMPRESSION 1. Acute kidney injury complicated by Bactrim and lisinopril at home. At risk of postinfectious glomerulonephritis, we will check the urinary sediment and complement level. I will hold the Bactrim and lisinopril and gently hydrate the patient. Volume is satisfactory. I request to refrain from NSAIDs and IV contrast. The patient should be observed in the hospital without any surgery at this point, unless the surgery is needed for emergent control of infection. 2. Chronic kidney disease, stage 3 to 4. Clinically secondary to diabetic nephropathy. 3. Hyponatremia likely complicated by hemodynamic changes and hydrochlorothiazide, losartan, gabapentin. We will hold losartan and hydrochlorothiazide and put him on fluid restriction. 4. Hyperkalemia with a bicarb of 20 likely hyporeninemic, hypoaldosteronism. We will restrict the dietary potassium intake. The patient not very compliant with diuresis. 5. Diastolic dysfunction. 6. Right foot osteomyelitis. 7. Hypertension. Dictated by... Rob Patricio TD: 07/17/2016 00:43 JOB #: [id number] Unit #: [id number] #: [id number] Patient: KEN IBARRA CONSULTATION REPORT Page 1 of 1 X Shaun Monique MD CONSULTATION REPORT
--- NOTE | ~2016-07-16 | CO ---
Unit #: [id number] #: [id number] Patient: KEN IBARRA [id number] [address] [address] [id number] MR#: [id number] NAME: KEN IBARRA. ROOM: 473 Age: 40 Sex: M Admission Date: 07/16/2016 : 1975 Attending Physician: Pam Abbasi M.D. Primary Care Physician: Carissa Brown M.D. Consultation Date: 07/24/2016 CONSULTATION REPORT REASON FOR CONSULT Tunneled dialysis catheter placement and long-term dialysis access. HISTORY OF PRESENT ILLNESS This patient is a 40-year-old male with poorly controlled diabetes and diabetic neuropathy. Was admitted for right fifth metatarsal base excision and wound VAC application. He was noted to have acute kidney injury and in need for dialysis. PAST MEDICAL HISTORY 1. Insulin dependent diabetes. 2. Diabetic neuropathy. 3. Bilateral foot drop. 4. Hypertension. 5. Tobacco abuse. ALLERGIES Cephalosporin. HOME MEDICATIONS 1. Gabapentin. 2. Hydrocodone. 3. Amlodipine. 4. Aspirin. 5. Hydralazine. 6. Insulin. 7. Metoprolol. SOCIAL HISTORY Patient is a smoker. Lives with son. Denies drug use. Denies alcohol. REVIEW OF SYSTEMS CONSTITUTIONAL: No fever, chills, or sweats. EYES: No recent visual problems. ENMT: No ear pain, nasal congestion, or sore throat. RESPIRATORY: No shortness of breath. No cough. CARDIOVASCULAR: No chest pain, palpitations, or syncope. GASTROINTESTINAL: No nausea, vomiting, or diarrhea. GENITOURINARY: No hematuria. HEME/LYMPH: Negative for bruising. No swollen lymph glands. MUSCULOSKELETAL: No back pain, neck pain, joint pain, or decreased range of motion. INTEGUMENTARY: No sores. Positive for healing wound to right foot. NEUROLOGIC: Alert and oriented x3. Unit #: [id number] #: [id number] Patient: KEN IBARRA PSYCHIATRIC: No anxiety, suicidal thoughts, or ideations. Positive for depression. PHYSICAL EXAM VITAL SIGNS: Blood pressure was 141/86, heart rate is 102, temp 98.9, saturation 96% room air, and respiratory rate of 18. GENERAL APPEARANCE: Well developed. Well nourished. No acute distress. HEENT: Normocephalic. Pupils are equal, round, and reactive to light. NECK: Supple and nontender without lymphadenopathy. No masses or thyromegaly. No carotid bruits noted. CARDIAC: Regular rate and rhythm. No murmur. LUNGS: Clear to auscultation. ABDOMEN: Positive bowel sounds. Nontender. Nondistended. MUSCULOSKELETAL: Moves all extremities. Full range of motion. UPPER EXTREMITIES: No deformities noted. No edema. He has a PICC line in the right arm. LOWER EXTREMITIES: He has a right transmetatarsal amputation of the right foot. No edema noted. VASCULAR: Palpable radial pulses bilaterally. INTEGUMENTARY: Warm and dry. No hemosiderin (1) . Has dressing applied to wounds on right lower leg. NEUROLOGIC: Cranial nerves, II-XII, grossly intact. Normal strength and sensation bilaterally. PSYCHIATRIC: Oriented to person, place, and time. Diminished (2) judgement, and reason. DIAGNOSTIC STUDIES IMAGING: Vein mapping ordered. LABORATORY: Potassium 4.5, sodium 127, chloride 93, CO2 24, BUN is 13, creatinine is 5.3, and glucose is 183. White blood cell count is 23.1, hemoglobin 7.9, hematocrit is 23.6, and platelet count is 494. ASSESSMENT AND PLAN CKD, stage 4-5. Plan for tunneled dialysis catheter placement tomorrow and possible left arm fistula creation. Will review vein mapping in a.m. Patient is to be NPO after midnight. Obtain consent for left arm dialysis fistula creation and tunneled cath placement per Dr. Erlin Willoughby. Orders written for preop antibiotic per hospital policy. A.M. labs ordered: CBC, BMP, and PT/INR. Dictated by... Verenice Recinos A.P.R.N. for Rob Cochran/isaac TD: 07/26/2016 08:50 JOB #: [id number] Unit #: [id number] #: [id number] Patient: KEN IBARRA CONSULTATION REPORT Page 1 of 1 X X CONSULTATION REPORT
--- NOTE | ~2016-07-16 | CR63 ---
[facility] A Service of [facility] RADIOLOGY TEXT RESULTS PATIENT: KEN IBARRA LOCATION: [facility] 473-01 : [birth year] UNIT #: [id number] AGE: [address]: Pam Abbasi MD SEX: M ORDER DR: [id number] [facility] [address] [facility]. [place], [place] [address] [id number] I MR#: [id number] Acc #: [id number] NAME: KEN IBARRA : 1975 SEX: M STUDY DATE/TIME: 07/28/2016 UNIT: [facility] ROOM: [facility] STUDY DESCRIPTION: CR Chest 2 View Attending Physician: Pam Abbasi M.D. Ordering Physician: Rob Rendon M.D. Primary Care Physician: Carissa Brown M.D. MEDICAL IMAGING REPORT This report is preliminary unless electronic signature is present EXAM Chest 2 views 07/28/2016 08:02 hours CLINICAL HISTORY Pneumonia with mild congestion and shortness of air since 07/16/[address] 07/23/2016 FINDINGS Upright PA and lateral views of the chest demonstrate stable mild cardiomegaly with underlying scoliosis. There is a right PICC line with tip terminating in the region of the mid subclavian vein. There is left retrocardiac density consistent with both airspace change and effusion. IMPRESSION 1. Right PICC line tip in the mid subclavian region. 2. Persistent left lower lobe airspace change with associated small effusion likely left lower lobe pneumonia. Dictated by... Denise Garcia M.D. THIS IS AN ELECTRONICALLY VERIFIED REPORT Denise Garcia M.D. at 07/28/2016 2:29 PM SMM/monica TD: 07/28/2016 11:09 JOB #: [id number] MEDICAL IMAGING REPORT Page 1 of 1 COPY
--- NOTE | ~2016-07-16 | US77 ---
[facility] of [facility] RADIOLOGY TEXT RESULTS PATIENT: KEN IBARRA LOCATION: [facility] [id number] : 77 UNIT #: [id number] AGE: [address]: Srinath Mantilla MD SEX: M ORDER DR: [id number] [facility] [address] [place], [place] [address] [id number] MR#: [id number] Acc #: [id number] NAME: KEN IBARRA : 1975 SEX: M STUDY DATE/TIME: 07/16/2016 16:46 UNIT: [facility] ROOM: [facility] STUDY DESCRIPTION: US Kidney Bilateral Complete Attending Physician: Srinath Mantilla M.D. Referring Physician: Good Vu M.D. Ordering Physician: Ed Wilner Pedroza M.D. Primary Care Physician: Carissa Brown M.D. MEDICAL IMAGING REPORT This report is preliminary unless electronic signature is present EXAM Bilateral renal ultrasound. HISTORY Stage III chronic kidney disease. FINDINGS Ultrasound examination of both kidneys demonstrates no renal mass or hydronephrosis. No focal renal parenchymal atrophy or perinephric fluid collection. The right kidney measures approximately 10.3 cm in length and the left kidney measures approximately 10.1 cm in length. The survey of the urinary bladder demonstrates the bladder is moderately distended, and otherwise, unremarkable. IMPRESSION 1. Negative ultrasound examination of both kidneys. 2. Urinary bladder is moderately distended but otherwise unremarkable. Dictated by... Patric Liang M.D. THIS IS AN ELECTRONICALLY VERIFIED REPORT Patric Liang M.D. at 07/16/2016 11:19 PM ALEXANDR/jerry TD: 07/16/2016 20:46 JOB #: [id number] MEDICAL IMAGING REPORT Page 1 of 1 COPY
--- NOTE | ~2016-07-16 | EKG ---
PATIENT: KEN IBARRA UNIT #: [id number] Ventricular Rate: 81 BPM Atrial Rate: 81 BPM P-R Interval: 150 ms QRS Duration: 86 ms Q-T Interval: 396 ms QTC Calculation(Bezet): 460 ms P [place]: 66 degrees Calculated R [place]: 91 degrees Calculated T [place]: 71 degrees Diagnosis Line: Normal sinus rhythm Diagnosis Line: Rightward axis Diagnosis Line: T wave abnormality, consider lateral ischemia Diagnosis Line: Prolonged QT Diagnosis Line: Abnormal ECG Diagnosis Line: When compared with ECG of 18-JUL-2016 12:21, Diagnosis Line: (unconfirmed) Diagnosis Line: No significant change was found Diagnosis Line: Confirmed by VANESSA SCHWAB MD ([id number]) on Diagnosis Line: 07/21/2016 9:37:18 PM INTERPRETING MD: ZAHEER CALVILLO
--- NOTE | ~2016-07-16 | US146 ---
[facility] A Service of [facility] & [facility] RADIOLOGY TEXT RESULTS PATIENT: KEN IBARRA LOCATION: [facility] [id number] : [birth year] UNIT #: [id number] AGE: [address]: Pam Abbasi MD SEX: M ORDER DR: [id number] [facility] [address] [place], [place] [address] [id number] MR#: [id number] Acc #: [id number] NAME: KEN IBARRA. : 1975 SEX: M STUDY DATE/TIME: 07/25/2016 9:54 UNIT: [facility] ROOM: [facility] STUDY DESCRIPTION: US Vein Map Hemodial Access Attending Physician: Pam Abbasi M.D. Ordering Physician: Neri Aquino M.D. Primary Care Physician: Carissa Brown M.D. MEDICAL IMAGING REPORT This report is preliminary unless electronic signature is present EXAM Bilateral upper extremity vein mapping. HISTORY For hemodialysis access. FINDINGS Vein mapping of the right and left cephalic and basilic veins was performed. The right cephalic vein is small and measures 1.3 mm in the proximal and mid upper arm, 2.2 mm in the distal upper arm, 1.3 mm at the elbow, 2.4 mm in the proximal forearm, 1.7 mm mid forearm, and less than 1 mm in the wrist. On the left side, the cephalic vein is once again small and measures 1.1 mm proximal and mid upper arm, 2.1 mm distal upper arm, 1.1 mm at the elbow, 0.9 mm proximal forearm, less than 1 mm in the mid forearm, and 1.2 mm distal forearm. On the right side, the basilic vein is adequate and measures 7.7 mm proximal upper arm, 2.9 mm mid upper arm, 4.2 mm distal upper arm, 3.7 mm at the elbow, 1.9 mm proximal forearm, 1.6 mm mid forearm. On the left side, the basilic vein is patent and measures 3.1 mm proximal upper arm, 3.9 mm mid upper arm, 2.9 mm at the distal upper arm, 3.5 mm at the elbow, 1.8 mm proximal forearm, and 1.4 mm mid forearm. The right and left brachial arteries have triphasic waveforms. IMPRESSION The right and left cephalic veins are small and not suitable for dialysis [facility]. [facility] A Service of [facility] & [facility] RADIOLOGY TEXT RESULTS PATIENT: KEN IBARRA LOCATION: [place] [id number] : [birth year] UNIT #: [id number] AGE: [address]: Pam Abbasi MD SEX: M ORDER DR: access. The right and left basilic veins are patent and suitable for dialysis access in the upper arms. Dictated by... Erlin Willoughby M.D. THIS IS AN ELECTRONICALLY VERIFIED REPORT Erlin Willoughby M.D. at 07/29/2016 4:08 PM Ángel TD: 07/25/2016 15:10 JOB #: [id number] MEDICAL IMAGING REPORT Page 1 of 1 COPY
--- NOTE | ~2016-07-16 | OR ---
Unit #: [id number] #: [id number] Patient: KEN IBARRA [id number] [address] [place], [place] [address] [id number] MR#: [id number] NAME: KEN IBARRA. ROOM: [facility] Date of Procedure: 07/23/2016 Admission Date: 07/16/2016 Surgeon: Abdiel Shaw M.D. : 1975 Attending Physician: Pam Abbasi M.D. Primary Care Physician: Carissa Brown M.D. PROCEDURE OPERATIVE NOTE PREOPERATIVE DIAGNOSIS Dysphagia. PROCEDURE PERFORMED 1. Upper GI endoscopy and biopsy. 2. Upper GI endoscopy and dilation. POSTOPERATIVE DIAGNOSES 1. The patient had prepyloric antral erosive gastritis. This was in the form of linear erosions in the antral area. Biopsy obtained from the antrum for CLOtest. 2. Distal erosive esophagitis. 3. Rest of examination up to the third part of the duodenum was normal. Specifically, no stricture or mucosal ring was seen. However, the esophagus was empirically dilated with a 60 [place] Bernal dilator. RECOMMENDATIONS The patient will be started on [id number] calorie CCD diet as tolerated. SEDATION USED MAC PROCEDURE DESCRIPTION Following a detailed explanation of potential risks and complications of an upper endoscopy, namely perforation, bleeding, and complications related to sedation, the patient was brought to the GI lab and laid in the left lateral decubitus position. The lubricated tip of the Olympus video upper endoscope was passed through the bite block and into the proximal esophagus under direct vision. The entire esophageal mucosa was examined and patient was noted to have distal grade 2 erosive esophagitis. No stricture or mucosal ring was seen. The scope was then advanced in the gastric cavity and the latter was insufflated. The mucosa of the fundus, body and antrum examined. The patient was noted to have prepyloric antral erythema and had some streaks. These were diffuse. The pylorus was intubated and visualization revealed normal duodenal bulb, second and third part of the duodenum. Upon withdrawal and retroflexion the incisura, cardia and greater curve were examined and no additional findings noted. The scope was then withdrawn in the distal esophagus. No additional findings noted. Biopsy obtained from the antrum for CLOtest. The scope was withdrawn through the rest of the esophagus. The entire esophageal mucosa was examined all the way up to the pharynx. No additional findings noted. Unit #: [id number] #: [id number] Patient: KEN IBARRA A 60 [place]ian Bernal dilator was introduced into the oral cavity and advanced into the esophagus. Re-look endoscopy did not show any bleeding or mucosal injury indicating the esophagus was wide open to start with. The scope was withdrawn. The patient returned to the recovery area. He tolerated the procedure without any post procedure complications. Dictated by... Rob Bahtia/zoran TD: 07/31/2016 07:18 JOB #: [id number] CC: Srinath Mantilla M.D. PROCEDURE OPERATIVE NOTE Page 1 of 1 X Abdiel Shaw MD X PROCEDURE OPERATIVE NOTE
[~2016-07-16 10:01] MED LIST changes: -BACTRIM DS TAB1 EACH PO; -CALCITRATE + V1 EACH PO; -SODIUM BICARBO650 MG PO
[2016-07-16] MEDS ORDERED: SODIUM BICARBO650 MG PO (11:21)
[2016-07-16] MEDS ORDERED: BACTRIM DS TAB1 EACH PO (11:21)
[2016-07-16] MEDS ORDERED: CALCITRATE + V1 EACH PO (11:23)
[2016-07-16 11:42] LABS: BASOPHIL# 0.1 X10e3 (0-0.3); BASOPHIL% 0.6 % (0-2.5); EOSINOPHIL# 0.2 X10e3 (0-0.7); EOSINOPHIL% 1.2 % (0.0-7.0); HEMATOCRIT 27.2 % (38.0-50.0); HEMOGLOBIN 8.8 gm/dL (13.0-16.0); LYMPHOCYTE# 1.8 X10e3 (1.0-3.5); LYMPHOCYTE% 13.2 % (17.0-45.0); MEAN CELL VOLUME 90.5 FL (83-96); MEAN CORPUSCULAR HEMOGLOBIN 29.3 PG (28-34); MEAN CORPUSCULAR HGB CONC 32.3 g/dL (30-36); MEAN PLATELET VOLUME 8.6 FL (6.5-11.5); MONOCYTE# 1.3 X10e3 (0-1.0); MONOCYTE% 9.4 % (3.0-12.0); NEUTROPHIL# 10.5 X10e3 (1.5-7.1); NEUTROPHIL% 75.6 % (40-75); PLATELET COUNT 588 X10e3 (140-420); RED CELL DISTRIBUTION WIDTH 13.9 % (11.0-15.5); WHITE BLOOD COUNT 13.9 X10e3 (4.0-10.5)
[2016-07-16 11:47] LABS: DIFF IND NO
[2016-07-16 12:11] LABS: BUN/CREATININE RATIO 10.4; CALCIUM SERUM 8.1 mg/dL (8.4-10.2); CREATININE SERUM 7.5 mg/dL (0.6-1.4); GLOM FILT RATE Estimated 9.6 mL/min (>60)
[2016-07-16 15:11] LABS: URINE SOURCE CLEAN CATCH
[2016-07-16 15:18] LABS: URINE APPEARANCE CLEAR; URINE BILIRUBIN NEG (NEG); URINE BLOOD NEG (NEG); URINE COLOR YELLOW; URINE GLUCOSE NEG (NEG); URINE KETONE NEG (NEG); URINE LEUKOCYTE ESTERASE NEG (NEG); URINE NITRATE NEG (NEG); URINE PH 6.5 (5-8); URINE PROTEIN TRACE (NEG); URINE SPECIFIC GRAVITY 1.009 (1.003-1.035); URINE UROBILINOGEN 0.2 MG/DL (NEG)
[2016-07-16 15:26] LABS: CULTURE INDICATED? NO
[2016-07-16 15:31] LABS: CREATININE,RANDOM URINE 57 mg/dL; SODIUM URINE RANDOM 59 mmol/L
[2016-07-17 04:12] LABS: HEMATOCRIT 25.5 % (38.0-50.0); HEMOGLOBIN 8.3 gm/dL (13.0-16.0); MEAN CELL VOLUME 90.3 FL (83-96); MEAN CORPUSCULAR HEMOGLOBIN 29.3 PG (28-34); MEAN CORPUSCULAR HGB CONC 32.5 g/dL (30-36); MEAN PLATELET VOLUME 8.2 FL (6.5-11.5); RED BLOOD COUNT 2.83 X10e (3.90-5.60); WHITE BLOOD COUNT 12.1 X10e3 (4.0-10.5)
[2016-07-17 04:43] LABS: BILIRUBIN,TOTAL 0.3 mg/dL (0.2-2.0); BUN/CREATININE RATIO 10.76; CALCIUM SERUM 7.9 mg/dL (8.4-10.2); CREATININE SERUM 6.5 mg/dL (0.6-1.4); GLOM FILT RATE Estimated 11.4 mL/min (>60); PROTEIN TOTAL SERUM 6.6 g/dL (6.0-8.3)
[2016-07-17 04:45] LABS: POTASSIUM 5.5 mmol/L (3.5-5.1)
[2016-07-17 13:08] LABS: BUN/CREATININE RATIO 12.32; CALCIUM SERUM 7.5 mg/dL (8.4-10.2); CREATININE SERUM 5.6 mg/dL (0.6-1.4); GLOM FILT RATE Estimated 13.6 mL/min (>60); POTASSIUM 5.4 mmol/L (3.5-5.1)
[2016-07-17 16:44] LABS: BUN/CREATININE RATIO 12.85; CALCIUM SERUM 7.4 mg/dL (8.4-10.2); CREATININE SERUM 5.6 mg/dL (0.6-1.4); GLOM FILT RATE Estimated 13.6 mL/min (>60)
[2016-07-17 16:47] LABS: POTASSIUM 5.5 mmol/L (3.5-5.1)
[2016-07-18 02:29] LABS: BASOPHIL# 0.2 X10e3 (0-0.3); BASOPHIL% 0.8 % (0-2.5); EOSINOPHIL# 0.2 X10e3 (0-0.7); EOSINOPHIL% 0.9 % (0.0-7.0); HEMATOCRIT 24.8 % (38.0-50.0); HEMOGLOBIN 8.1 gm/dL (13.0-16.0); LYMPHOCYTE# 3.8 X10e3 (1.0-3.5); LYMPHOCYTE% 19.1 % (17.0-45.0); MEAN CORPUSCULAR HEMOGLOBIN 29.3 PG (28-34); MEAN CORPUSCULAR HGB CONC 32.6 g/dL (30-36); MONOCYTE% 10.1 % (3.0-12.0); NEUTROPHIL# 13.8 X10e3 (1.5-7.1); NEUTROPHIL% 69.1 % (40-75); RED BLOOD COUNT 2.76 X10e (3.90-5.60); RED CELL DISTRIBUTION WIDTH 13.9 % (11.0-15.5)
[2016-07-18 02:30] LABS: DIFF IND YES; PLATELET COUNT 576 X10e3 (140-420)
[2016-07-18 02:32] LABS: BUN/CREATININE RATIO 12.72; CALCIUM SERUM 7.3 mg/dL (8.4-10.2); CREATININE SERUM 5.5 mg/dL (0.6-1.4); GLOM FILT RATE Estimated 13.9 mL/min (>60); HYPERSEGMENTED POLYS PRESENT; HYPOCHROMIA SL; PLATELET ESTIMATE INCREASED (NORMAL); POTASSIUM 4.8 mmol/L (3.5-5.1)
[2016-07-18 07:11] LABS: COMPLEMENT C3 188 mg/dL (90-180); COMPLEMENT C4 38 mg/dL (16-47)
[2016-07-19 04:05] LABS: BASOPHIL# 0.1 X10e3 (0-0.3); DIFF IND NO; EOSINOPHIL% 0.3 % (0.0-7.0); HEMATOCRIT 24.1 % (38.0-50.0); HEMOGLOBIN 8.1 gm/dL (13.0-16.0); LYMPHOCYTE% 14.3 % (17.0-45.0); MEAN CELL VOLUME 89.8 FL (83-96); MEAN CORPUSCULAR HEMOGLOBIN 30.2 PG (28-34); MEAN CORPUSCULAR HGB CONC 33.7 g/dL (30-36); MEAN PLATELET VOLUME 8.1 FL (6.5-11.5); MONOCYTE# 1.4 X10e3 (0-1.0); MONOCYTE% 10.1 % (3.0-12.0); NEUTROPHIL# 10.5 X10e3 (1.5-7.1); NEUTROPHIL% 74.3 % (40-75); PLATELET COUNT 562 X10e3 (140-420); RED BLOOD COUNT 2.68 X10e (3.90-5.60); RED CELL DISTRIBUTION WIDTH 13.9 % (11.0-15.5); WHITE BLOOD COUNT 14.1 X10e3 (4.0-10.5)
[2016-07-19 04:19] LABS: BUN/CREATININE RATIO 12.4; CALCIUM SERUM 7.7 mg/dL (8.4-10.2); GLOM FILT RATE Estimated 15.6 mL/min (>60); MAGNESIUM 2.3 mg/dL (1.6-3.0); POTASSIUM 5.3 mmol/L (3.5-5.1)
[2016-07-19 17:40] LABS: BUN/CREATININE RATIO 11.87; CALCIUM SERUM 7.9 mg/dL (8.4-10.2); CREATININE SERUM 4.8 mg/dL (0.6-1.4); GLOM FILT RATE Estimated 16.4 mL/min (>60); POTASSIUM 4.3 mmol/L (3.5-5.1)
[2016-07-20 04:02] LABS: BUN/CREATININE RATIO 11.91; CALCIUM SERUM 7.7 mg/dL (8.4-10.2); CREATININE SERUM 4.7 mg/dL (0.6-1.4); GLOM FILT RATE Estimated 16.8 mL/min (>60); POTASSIUM 4.4 mmol/L (3.5-5.1)
[2016-07-21 04:03] LABS: HEMATOCRIT 25.1 % (38.0-50.0); HEMOGLOBIN 8.2 gm/dL (13.0-16.0); MEAN CELL VOLUME 90.4 FL (83-96); MEAN CORPUSCULAR HEMOGLOBIN 29.6 PG (28-34); MEAN CORPUSCULAR HGB CONC 32.7 g/dL (30-36); MEAN PLATELET VOLUME 8.1 FL (6.5-11.5); RED BLOOD COUNT 2.78 X10e (3.90-5.60); RED CELL DISTRIBUTION WIDTH 13.7 % (11.0-15.5); WHITE BLOOD COUNT 21.6 X10e3 (4.0-10.5)
[2016-07-21 04:17] LABS: BUN/CREATININE RATIO 10.42; CALCIUM SERUM 7.8 mg/dL (8.4-10.2); CREATININE SERUM 4.7 mg/dL (0.6-1.4); GLOM FILT RATE Estimated 16.8 mL/min (>60); PHOSPHOROUS 4.4 mg/dL (2.5-4.6); POTASSIUM 4.7 mmol/L (3.5-5.1)
[2016-07-21 17:58] LABS: IRON SERUM 16 ug/dL (45-182); TOTAL IRON BINDING CAPACITY 190 ug/dL (252-460); TRANSFERRIN 136 mg/dL (180-329); TRANSFERRIN SATURATION 8 % (20-50)
[2016-07-22 03:06] LABS: BASOPHIL# 0.2 X10e3 (0-0.3); BASOPHIL% 0.5 % (0-2.5); EOSINOPHIL# 0.1 X10e3 (0-0.7); EOSINOPHIL% 0.1 % (0.0-7.0); HEMATOCRIT 22.2 % (38.0-50.0); HEMOGLOBIN 7.3 gm/dL (13.0-16.0); LYMPHOCYTE# 1.1 X10e3 (1.0-3.5); LYMPHOCYTE% 2.8 % (17.0-45.0); MEAN CELL VOLUME 89.5 FL (83-96); MEAN CORPUSCULAR HEMOGLOBIN 29.5 PG (28-34); MEAN CORPUSCULAR HGB CONC 32.9 g/dL (30-36); MONOCYTE# 2.5 X10e3 (0-1.0); MONOCYTE% 6.2 % (3.0-12.0); NEUTROPHIL# 36.4 X10e3 (1.5-7.1); NEUTROPHIL% 90.4 % (40-75); PLATELET COUNT 549 X10e3 (140-420); RED BLOOD COUNT 2.48 X10e (3.90-5.60); RED CELL DISTRIBUTION WIDTH 13.7 % (11.0-15.5); WHITE BLOOD COUNT 40.2 X10e3 (4.0-10.5)
[2016-07-22 03:07] LABS: DIFF IND YES
[2016-07-22 03:25] LABS: BUN/CREATININE RATIO 10.4; CALCIUM SERUM 8.3 mg/dL (8.4-10.2); CREATININE SERUM 4.9 mg/dL (0.6-1.4); POTASSIUM 4.8 mmol/L (3.5-5.1)
[2016-07-22 03:29] LABS: PLATELET ESTIMATE INCREASED (NORMAL); SMUDGE CELLS 11 /100
[2016-07-22 03:30] LABS: ANISOCYTOSIS SL; HYPOCHROMIA MOD; POLYCHROMASIA SL; TARGET CELLS SL; TOXIC GRANULATION SL
[2016-07-22 12:36] LABS: HEMATOCRIT 23.5 % (38.0-50.0); HEMOGLOBIN 7.6 gm/dL (13.0-16.0); MEAN CELL VOLUME 90.2 FL (83-96); MEAN CORPUSCULAR HEMOGLOBIN 29.1 PG (28-34); MEAN CORPUSCULAR HGB CONC 32.3 g/dL (30-36); MEAN PLATELET VOLUME 7.8 FL (6.5-11.5); RED BLOOD COUNT 2.6 X10e (3.90-5.60); RED CELL DISTRIBUTION WIDTH 13.6 % (11.0-15.5); WHITE BLOOD COUNT 43.7 X10e3 (4.0-10.5)
[2016-07-22 15:26] LABS: THYROID STIMULATING HORMONE 0.61 uIU/ml (0.34-5.60)
[2016-07-22 15:33] LABS: FREE THYROXIN (T4) 0.87 ng/dL (0.58-1.64)
[2016-07-22 18:58] LABS: URINE SOURCE CLEAN CATCH
[2016-07-22 19:09] LABS: URINE APPEARANCE CLEAR; URINE BILIRUBIN NEG (NEG); URINE BLOOD NEG (NEG); URINE COLOR YELLOW; URINE GLUCOSE NEG (NEG); URINE KETONE TRACE (NEG); URINE LEUKOCYTE ESTERASE NEG (NEG); URINE NITRATE NEG (NEG); URINE PROTEIN 1+ (NEG); URINE SPECIFIC GRAVITY 1.012 (1.003-1.035); URINE UROBILINOGEN 0.2 MG/DL (NEG)
[2016-07-22 19:12] LABS: U HYALINE CASTS AUWI 0-2 /[LPF]; URBCS1 AUWI 0-2 /[HPF] (0-2); URINE BACTERIA AUWI NEG (NEGATIVE); URINE SQUAMOUS EPITHELIAL CELL NONE SEEN /[HPF]; UWBCS1 AUWI 0-2 (0-5)
[2016-07-23 02:32] LABS: HEMATOCRIT 23.7 % (38.0-50.0); HEMOGLOBIN 7.7 gm/dL (13.0-16.0); MEAN CELL VOLUME 90.3 FL (83-96); MEAN CORPUSCULAR HEMOGLOBIN 29.2 PG (28-34); MEAN CORPUSCULAR HGB CONC 32.4 g/dL (30-36); RED BLOOD COUNT 2.63 X10e (3.90-5.60); RED CELL DISTRIBUTION WIDTH 13.5 % (11.0-15.5); WHITE BLOOD COUNT 41.7 X10e3 (4.0-10.5)
[2016-07-23 02:44] LABS: ALBUMIN SERUM 2.4 g/dL (3.5-5.0); BILIRUBIN,TOTAL 1.2 mg/dL (0.2-2.0); BUN/CREATININE RATIO 11.29; CALCIUM SERUM 8.2 mg/dL (8.4-10.2); CREATININE SERUM 5.4 mg/dL (0.6-1.4); GLOM FILT RATE Estimated 14.2 mL/min (>60); PHOSPHOROUS 5.5 mg/dL (2.5-4.6); PROTEIN TOTAL SERUM 6.1 g/dL (6.0-8.3)
[2016-07-23 18:30] LABS: URINE SOURCE CATH
[2016-07-23 18:40] LABS: URINE APPEARANCE CLEAR; URINE BILIRUBIN NEG (NEG); URINE BLOOD NEG (NEG); URINE COLOR YELLOW; URINE GLUCOSE NEG (NEG); URINE KETONE NEG (NEG); URINE LEUKOCYTE ESTERASE NEG (NEG); URINE NITRATE NEG (NEG); URINE PROTEIN 1+ (NEG); URINE SPECIFIC GRAVITY 1.013 (1.003-1.035); URINE UROBILINOGEN 0.2 MG/DL (NEG)
[2016-07-23 18:44] LABS: URBCS1 AUWI 0-2 /[HPF] (0-2); URINE BACTERIA AUWI NEG (NEGATIVE); URINE SQUAMOUS EPITHELIAL CELL NONE SEEN /[HPF]; UWBCS1 AUWI 0-2 (0-5)
[2016-07-24 04:04] LABS: HEMATOCRIT 21.6 % (38.0-50.0); MEAN CELL VOLUME 91.7 FL (83-96); MEAN CORPUSCULAR HEMOGLOBIN 29.8 PG (28-34); MEAN CORPUSCULAR HGB CONC 32.5 g/dL (30-36); MEAN PLATELET VOLUME 7.8 FL (6.5-11.5); RED BLOOD COUNT 2.36 X10e (3.90-5.60); RED CELL DISTRIBUTION WIDTH 13.9 % (11.0-15.5); WHITE BLOOD COUNT 31.3 X10e3 (4.0-10.5)
[2016-07-24 04:22] LABS: ALBUMIN SERUM 2.1 g/dL (3.5-5.0); BILIRUBIN,TOTAL 0.5 mg/dL (0.2-2.0); BUN/CREATININE RATIO 12.03; CREATININE SERUM 5.9 mg/dL (0.6-1.4); GLOM FILT RATE Estimated 12.8 mL/min (>60); MAGNESIUM 2.1 mg/dL (1.6-3.0); PHOSPHOROUS 5.5 mg/dL (2.5-4.6); POTASSIUM 4.5 mmol/L (3.5-5.1)
[2016-07-24 14:37] LABS: BASOPHIL# 0.2 X10e3 (0-0.3); BASOPHIL% 0.8 % (0-2.5); EOSINOPHIL# 0.2 X10e3 (0-0.7); EOSINOPHIL% 0.7 % (0.0-7.0); HEMATOCRIT 25.5 % (38.0-50.0); HEMOGLOBIN 8.2 gm/dL (13.0-16.0); LYMPHOCYTE# 2.2 X10e3 (1.0-3.5); LYMPHOCYTE% 8.1 % (17.0-45.0); MEAN CORPUSCULAR HEMOGLOBIN 28.8 PG (28-34); MEAN CORPUSCULAR HGB CONC 32.3 g/dL (30-36); MEAN PLATELET VOLUME 7.8 FL (6.5-11.5); MONOCYTE# 3.5 X10e3 (0-1.0); NEUTROPHIL# 20.9 X10e3 (1.5-7.1); NEUTROPHIL% 77.4 % (40-75); PLATELET COUNT 494 X10e3 (140-420); RED BLOOD COUNT 2.86 X10e (3.90-5.60); RED CELL DISTRIBUTION WIDTH 13.9 % (11.0-15.5)
[2016-07-24 14:50] LABS: DIFF IND YES
[2016-07-24 15:06] LABS: PLATELET ESTIMATE NORMAL (NORMAL)
[2016-07-25 03:43] LABS: HEMATOCRIT 23.6 % (38.0-50.0); HEMOGLOBIN 7.9 gm/dL (13.0-16.0); MEAN CELL VOLUME 88.4 FL (83-96); MEAN CORPUSCULAR HEMOGLOBIN 29.7 PG (28-34); MEAN CORPUSCULAR HGB CONC 33.6 g/dL (30-36); RED BLOOD COUNT 2.67 X10e (3.90-5.60); RED CELL DISTRIBUTION WIDTH 14.4 % (11.0-15.5); WHITE BLOOD COUNT 23.1 X10e3 (4.0-10.5)
[2016-07-25 03:47] LABS: INR 1.1; PROTHROMBIN TIME (PATIENT) 11.6 SECONDS (9.6-11.5)
[2016-07-25 04:06] LABS: BILIRUBIN,TOTAL 0.7 mg/dL (0.2-2.0); BUN/CREATININE RATIO 13.01; CREATININE SERUM 5.3 mg/dL (0.6-1.4); GLOM FILT RATE Estimated 14.6 mL/min (>60); MAGNESIUM 2.1 mg/dL (1.6-3.0); POTASSIUM 4.5 mmol/L (3.5-5.1); PROTEIN TOTAL SERUM 5.4 g/dL (6.0-8.3)
[2016-07-26 03:33] LABS: BASOPHIL# 0.1 X10e3 (0-0.3); BASOPHIL% 0.5 % (0-2.5); EOSINOPHIL# 0.2 X10e3 (0-0.7); EOSINOPHIL% 0.7 % (0.0-7.0); HEMATOCRIT 23.2 % (38.0-50.0); HEMOGLOBIN 7.7 gm/dL (13.0-16.0); LYMPHOCYTE# 2.2 X10e3 (1.0-3.5); LYMPHOCYTE% 10.4 % (17.0-45.0); MEAN CELL VOLUME 88.9 FL (83-96); MEAN CORPUSCULAR HEMOGLOBIN 29.5 PG (28-34); MEAN CORPUSCULAR HGB CONC 33.2 g/dL (30-36); MEAN PLATELET VOLUME 8.1 FL (6.5-11.5); MONOCYTE# 2.9 X10e3 (0-1.0); MONOCYTE% 13.8 % (3.0-12.0); NEUTROPHIL# 15.9 X10e3 (1.5-7.1); NEUTROPHIL% 74.6 % (40-75); PLATELET COUNT 443 X10e3 (140-420); RED BLOOD COUNT 2.61 X10e (3.90-5.60); RED CELL DISTRIBUTION WIDTH 14.1 % (11.0-15.5); WHITE BLOOD COUNT 21.3 X10e3 (4.0-10.5)
[2016-07-26 03:34] LABS: DIFF IND NO
[2016-07-26 03:47] LABS: ALBUMIN SERUM 2.3 g/dL (3.5-5.0); BILIRUBIN,TOTAL 0.1 mg/dL (0.2-2.0); BUN/CREATININE RATIO 13.33; CREATININE SERUM 4.8 mg/dL (0.6-1.4); GLOM FILT RATE Estimated 16.4 mL/min (>60); PHOSPHOROUS 3.9 mg/dL (2.5-4.6); POTASSIUM 4.5 mmol/L (3.5-5.1); PROTEIN TOTAL SERUM 6.1 g/dL (6.0-8.3)
[2016-07-27 02:50] LABS: HEMATOCRIT 23.1 % (38.0-50.0); HEMOGLOBIN 7.7 gm/dL (13.0-16.0); MEAN CORPUSCULAR HEMOGLOBIN 29.4 PG (28-34); MEAN CORPUSCULAR HGB CONC 33.4 g/dL (30-36); MEAN PLATELET VOLUME 7.4 FL (6.5-11.5); RED BLOOD COUNT 2.62 X10e (3.90-5.60); WHITE BLOOD COUNT 20.2 X10e3 (4.0-10.5)
[2016-07-27 03:44] LABS: BUN/CREATININE RATIO 13.33; CALCIUM SERUM 8.3 mg/dL (8.4-10.2); CREATININE SERUM 4.2 mg/dL (0.6-1.4); GLOM FILT RATE Estimated 19.3 mL/min (>60); PHOSPHOROUS 3.7 mg/dL (2.5-4.6); POTASSIUM 4.7 mmol/L (3.5-5.1)
[2016-07-28 03:42] LABS: HEMATOCRIT 20.7 % (38.0-50.0); MEAN CORPUSCULAR HEMOGLOBIN 29.8 PG (28-34); MEAN CORPUSCULAR HGB CONC 33.4 g/dL (30-36); MEAN PLATELET VOLUME 7.8 FL (6.5-11.5); RED BLOOD COUNT 2.32 X10e (3.90-5.60); RED CELL DISTRIBUTION WIDTH 13.8 % (11.0-15.5); WHITE BLOOD COUNT 17.4 X10e3 (4.0-10.5)
[2016-07-28 03:47] LABS: HEMOGLOBIN 6.9 gm/dL (13.0-16.0)
[2016-07-28 04:23] LABS: BUN/CREATININE RATIO 13.84; CALCIUM SERUM 7.7 mg/dL (8.4-10.2); CREATININE SERUM 3.9 mg/dL (0.6-1.4); GLOM FILT RATE Estimated 21.1 mL/min (>60); POTASSIUM 4.6 mmol/L (3.5-5.1)
[2016-07-28 05:32] LABS: BASOPHIL# 0.1 X10e3 (0-0.3); BASOPHIL% 0.4 % (0-2.5); EOSINOPHIL# 0.2 X10e3 (0-0.7); EOSINOPHIL% 1.3 % (0.0-7.0); HEMATOCRIT 22.6 % (38.0-50.0); HEMOGLOBIN 7.4 gm/dL (13.0-16.0); LYMPHOCYTE# 2.3 X10e3 (1.0-3.5); LYMPHOCYTE% 13.1 % (17.0-45.0); MEAN CELL VOLUME 89.5 FL (83-96); MEAN CORPUSCULAR HEMOGLOBIN 29.4 PG (28-34); MEAN CORPUSCULAR HGB CONC 32.8 g/dL (30-36); MEAN PLATELET VOLUME 7.5 FL (6.5-11.5); MONOCYTE# 2.6 X10e3 (0-1.0); MONOCYTE% 14.7 % (3.0-12.0); NEUTROPHIL# 12.4 X10e3 (1.5-7.1); NEUTROPHIL% 70.5 % (40-75); PLATELET COUNT 414 X10e3 (140-420); RED BLOOD COUNT 2.53 X10e (3.90-5.60); RED CELL DISTRIBUTION WIDTH 13.8 % (11.0-15.5); WHITE BLOOD COUNT 17.6 X10e3 (4.0-10.5)
[2016-07-28 05:34] LABS: DIFF IND YES
[2016-07-28 06:24] LABS: PLATELET ESTIMATE NORMAL (NORMAL); RBC NORMAL YES
[2016-07-29 03:13] LABS: BASOPHIL# 0.1 X10e3 (0-0.3); BASOPHIL% 0.4 % (0-2.5); EOSINOPHIL# 0.2 X10e3 (0-0.7); EOSINOPHIL% 1.3 % (0.0-7.0); HEMOGLOBIN 7.3 gm/dL (13.0-16.0); LYMPHOCYTE% 13.4 % (17.0-45.0); MEAN CELL VOLUME 90.7 FL (83-96); MEAN CORPUSCULAR HEMOGLOBIN 28.9 PG (28-34); MEAN CORPUSCULAR HGB CONC 31.8 g/dL (30-36); MONOCYTE% 12.8 % (3.0-12.0); NEUTROPHIL# 11.1 X10e3 (1.5-7.1); NEUTROPHIL% 72.1 % (40-75); PLATELET COUNT 405 X10e3 (140-420); RED BLOOD COUNT 2.54 X10e (3.90-5.60); RED CELL DISTRIBUTION WIDTH 13.9 % (11.0-15.5); WHITE BLOOD COUNT 15.3 X10e3 (4.0-10.5)
[2016-07-29 03:14] LABS: DIFF IND NO
[2016-07-29 04:18] LABS: BUN/CREATININE RATIO 13.61; CALCIUM SERUM 7.9 mg/dL (8.4-10.2); CREATININE SERUM 3.6 mg/dL (0.6-1.4); GLOM FILT RATE Estimated 23.2 mL/min (>60); POTASSIUM 4.5 mmol/L (3.5-5.1)
== END 2016-07-29 19:06 | DRG 628 ==
LOC: CSUR 10:01 → C4C 11:52 → CSUR 11:52 → C4C 12:25 → CSUR 13:30 → C4C 07-29 19:06
PROVIDERS: Family Medicine; Internal Medicine; Internal Medicine Gastroenterology; Internal Medicine Nephrology; Nurse Practitioner; Nurse Practitioner Family; Orthopaedic Surgery; Urology
PROC: B24BYZZ Ultrasonography of Heart with Aorta using Other Contrast (ICD-10-PCS; 2016-07-16)
PROC: 0QTN0ZZ Resection of Right Metatarsal, Open Approach (ICD-10-PCS; 2016-07-18)
PROC: 0QBL0ZX Excision of Right Tarsal, Open Approach, Diagnostic (ICD-10-PCS; 2016-07-18 07:30)
PROC: 0D758ZZ Dilation of Esophagus, Via Natural or Artificial Opening Endoscopic (ICD-10-PCS; 2016-07-23)
PROC: 0DB68ZX Excision of Stomach, Via Natural or Artificial Opening Endoscopic, Diagnostic (ICD-10-PCS; principal; 2016-07-23 10:39)
PROC: 05H533Z Insertion of Infusion Device into Right Subclavian Vein, Percutaneous Approach (ICD-10-PCS; 2016-07-24)
PROC: B516YZA Fluoroscopy of Right Subclavian Vein using Other Contrast, Guidance (ICD-10-PCS; 2016-07-24)
PROC: B546ZZA Ultrasonography of Right Subclavian Vein, Guidance (ICD-10-PCS; 2016-07-24)
PROC: 30233N1 Transfusion of Nonautologous Red Blood Cells into Peripheral Vein, Percutaneous Approach (ICD-10-PCS; 2016-07-24)
DX: E11.69 Type 2 diabetes mellitus with other specified complication (principal); J96.01 Acute respiratory failure with hypoxia; M86.8X7 Other osteomyelitis, ankle and foot; R65.20 Severe sepsis without septic shock; J69.0 Pneumonitis due to inhalation of food and vomit; I13.2 Hypertensive heart and chronic kidney disease with heart failure and with stage 5 chronic kidney disease, or end stage renal disease; E11.621 Type 2 diabetes mellitus with foot ulcer; A41.9 Sepsis, unspecified organism; E87.1 Hypo-osmolality and hyponatremia; K22.10 Ulcer of esophagus without bleeding; J18.9 Pneumonia, unspecified organism; M00.9 Pyogenic arthritis, unspecified; L02.611 Cutaneous abscess of right foot; I50.32 Chronic diastolic (congestive) heart failure; N17.9 Acute kidney failure, unspecified; N18.6 End stage renal disease; E11.21 Type 2 diabetes mellitus with diabetic nephropathy; L97.519 Non-pressure chronic ulcer of other part of right foot with unspecified severity; Z79.4 Long term (current) use of insulin; F17.210 Nicotine dependence, cigarettes, uncomplicated; Z79.82 Long term (current) use of aspirin; M21.372 Foot drop, left foot; M21.371 Foot drop, right foot; E11.22 Type 2 diabetes mellitus with diabetic chronic kidney disease; E11.42 Type 2 diabetes mellitus with diabetic polyneuropathy; R13.10 Dysphagia, unspecified; E11.319 Type 2 diabetes mellitus with unspecified diabetic retinopathy without macular edema; E78.5 Hyperlipidemia, unspecified; D63.1 Anemia in chronic kidney disease; E11.65 Type 2 diabetes mellitus with hyperglycemia; E87.5 Hyperkalemia; Z89.422 Acquired absence of other left toe(s); Z89.421 Acquired absence of other right toe(s); N40.1 Benign prostatic hyperplasia with lower urinary tract symptoms; R33.8 Other retention of urine; K29.50 Unspecified chronic gastritis without bleeding; N32.0 Bladder-neck obstruction; K29.70 Gastritis, unspecified, without bleeding; D72.829 Elevated white blood cell count, unspecified; B96.5 Pseudomonas (aeruginosa) (mallei) (pseudomallei) as the cause of diseases classified elsewhere
CPT/HCPCS: 36415; 71020; 71250; 74176; 76770; 76937; 77001; 80048; 80053; 81003; 82308; 82570; 82728; 82947; 83036; 83540; 83550; 83605; 83735; 83880; 84100; 84156; 84300; 84439; 84443; 84466; 84484; 85025; 85027; 85610; 85652; 86140; 86160; 86850; 86900; 86901; 86923; 87040; 87070; 87075; 87076; 87077; 87086; 87186; 87205; 88307; 88311; 89190; 92610; 93005; 93306; 94640; 94760; 97110; 97116; 97163; 97530; A6550; C1725; C1751; G0365; G8978-GP; G8979-GP; G8996-GN; G8997-GN; G8998-GN; J0610; J0885; J1200; J1644; J1650; J1815; J2020; J2185; J2250; J2270; J2405; J3010; J3243; P9016; Q4081